=== PATIENT | male | born 1960 | race Caucasian/White ===

== ENCOUNTER 2018-02-20 19:43 | Inpatient (IN) | payer MEDICARE, MEDICAID ==
--- NOTE | 2018-02-20 20:13 | ED Physician Chart ---
ED Chief Complaint/HPI - Patient Information Date Seen:: 02/20/18 Time Seen:: 20:12 Chief Complaint:: Generalized weakness History of Present Illness:: 57 yo female was brought from [facility] to ER for evaluation of generalized weakness. The patient is non-verbal. Allergies:: Allergies Allergy/AdvReac Type Severity Reaction Status Date / Time ibuprofen Allergy Verified 02/20/18 20:11 ED Review of Systems - Review of Systems General/Constitutional: No fever Skin: No bruising Head: No headache Eyes: No pain ENT: No nasal drainage Neck: No neck pain Cardio Vascular: No chest pain Pulmonary: No SOB GI: No nausea, No vomiting Musculoskeletal: No muscle pain Neurological: No focal symptoms ED Past Medical History - Past Medical History Past Medical History: HTN, CHF, ESRD, Other (HIV, CARDIOMEGALY, ANEMIA) Social History: Non Smoker, No Alcohol, No Drug Use Surgical History: other (LEFT UPPER ARM SHUNT) Family Medical History - Family Member Mother History Unknown: Yes ED Physical Exam - Physical Examination General/Constitutional: Awake Head: Atraumatic Eyes: PERRL Skin: No ecchymosis ENMT: Nasal exam nl Neck: No nuchal rigidity Respiratory: No Wheeze/Rhonchi/Rales Cardio Vascular: RRR, No murmur, gallop, rubs, NL S1 S2 GI: No tenderness/rebounding/guarding Extremities: Full ROM Neuro/Psych: No focal deficits ED Labs/Radiology/EKG Results - Radiology Results Results: CXR: no acute abnormalities ED Assessment - Assessment General Assessment: CHF exacerbation CKD stage 5 on hemodialysis Normocytic anemia Hyperkalemia Assessment/Comments:: CBC, CMP CXR, EKG Hydralazine Admit to telemetry ED Septic Shock - . Is Septic Shock (SBP<90, OR Lactate>4 mmol\L) present?: No ED Reassessment (Disposition) - Reassessment Reassessment Condition:: Improved - Patient Disposition Discharge/Transfer:: Acute Care w/in [facility] Admitting Medical Physician:: Matias Diaz ED Discharge Plan - Patient Disposition Admit/Discharge/Transfer: Acute Care w/in [facility]
[2018-02-20 20:40] LABS: % BASOPHILS 0.4 % (0.0-2.0); % LYMPHOCYTES 9.8 % (20.0-50.0); % MONOCYTES 10.6 % (2.0-10.0); % NEUTROPHILS 77.2 % (40.0-80.0); EOSINOPHILE ABSOLUTE 0.2 Th/cmm (0.1-0.4); HEMATOCRIT 29.7 % (41.0-60); HEMOGLOBIN 10.3 gm/dL (12-16); LYMPHOCYTE ABSOLUTE 0.8 Th/cmm (1.5-3.0); MEAN CELL VOLUME 92.6 fl (81-100); MEAN CORPUSCULAR HGB CONC 34.5 pg (28.0-36.0); MEAN PLATELET VOLUME 7.8 fl; MONOCYTE ABSOLUTE 0.8 Th/cmm (0.3-1.0); NEUTROPHILE ABSOLUTE 6.1 Th/cmm (1.8-8.0); PLATELET COUNT 170 Th/cmm (150-400); RED BLOOD COUNT 3.21 Mil/cmm (3.80-5.10); RED CELL DISTRIBUTION WIDTH 15.2 % (11.5-20.0); WHITE BLOOD COUNT 7.9 Th/cmm (4.8-10.8)
[2018-02-20 21:06] LABS: ALB/GLOB RATIO 0.9 (1.0-1.8); ALBUMIN 3.5 gm/dL (3.7-5.3); ANION GAP 23.8 (7.0-16.0); BILIRUBIN,TOTAL 0.6 mg/dL (0.3-1.0); CALCIUM SERUM 10.2 mg/dL (8.6-10.3); CARBON DIOXIDE 21.6 mEq/L (21.0-31.0); GFR AFRICAN-AMERICAN 3.5 ml/min (>90); GFR NON AFRICAN-AMERICAN 2.9 ml/min; MAGNESIUM 2.7 mg/dL (1.9-2.7); POTASSIUM SERUM 5.4 mEq/L (3.5-5.1); TOTAL PROTEIN,SERUM 7.3 gm/dL (6.0-8.3)
[2018-02-21 06:42] LABS: ANION GAP 24.9 (7.0-16.0); CALCIUM SERUM 10.3 mg/dL (8.6-10.3); CARBON DIOXIDE 21.3 mEq/L (21.0-31.0); GFR AFRICAN-AMERICAN 4.5 ml/min (>90); GFR NON AFRICAN-AMERICAN 3.7 ml/min
[2018-02-21 07:10] LABS: CREATININE - SERUM 14.5 mg/dL (0.7-1.3); POTASSIUM SERUM 6.2 mEq/L (3.5-5.1)
[2018-02-21] MEDS ORDERED: DOLUTEGRAVIR SODIUM 50 MG PO SCH (09:00)
[2018-02-21] MEDS: Lactulose 10 Gm/15 mL 30mL UDC PO SCH ×2 (09:00→17:18)
[2018-02-21] MEDS ORDERED: NUT TX IMPAIRED RENAL FXN SOY PO SCH (09:00)
[2018-02-21] MEDS ORDERED: ABACAVIR SULFATE 600 MG PO SCH (09:00)
[2018-02-21] MEDS ORDERED: LAMIVUDINE 300 MG PO SCH (09:00)
--- NOTE | 2018-02-21 09:20 | Diagnostic Imaging Report ---
Portable chest x-ray Time: 2020 hours History: Shortness of breath Allowing for portable technique the heart is enlarged. No focal pulmonary parenchymal processes. No hilar or mediastinal abnormalities.. Arch calcified Impression: No acute abnormalities. Pneumobilia, atherosclerotic calcification of the thoracic aorta and aortic arch area
[2018-02-21] MEDS ORDERED: VTE Chemical Prophylaxis Screen/Admission MC PRN (10:03)
[2018-02-21] MEDS: Vitamin B Complex w/Vitamin C Tab PO SCH (16:20)
[2018-02-22 06:51] LABS: % BASOPHILS 0.4 % (0.0-2.0); % EOSINOPHILS 2.6 % (0.0-5.0); % LYMPHOCYTES 13.5 % (20.0-50.0); % MONOCYTES 11.1 % (2.0-10.0); % NEUTROPHILS 72.4 % (40.0-80.0); EOSINOPHILE ABSOLUTE 0.1 Th/cmm (0.1-0.4); HEMATOCRIT 30.1 % (41.0-60); HEMOGLOBIN 10.2 gm/dL (12-16); LYMPHOCYTE ABSOLUTE 0.7 Th/cmm (1.5-3.0); MEAN CORPUSCULAR HEMOGLOBIN 31.3 pg (26.0-30.0); MEAN PLATELET VOLUME 7.8 fl; MONOCYTE ABSOLUTE 0.6 Th/cmm (0.3-1.0); PLATELET COUNT 159 Th/cmm (150-400); RED BLOOD COUNT 3.27 Mil/cmm (4.30-5.70); RED CELL DISTRIBUTION WIDTH 15.1 % (11.5-20.0); WHITE BLOOD COUNT 5.4 Th/cmm (4.8-10.8)
[2018-02-22 07:10] LABS: ANION GAP 17.2 (7.0-16.0); CALCIUM SERUM 10.2 mg/dL (8.6-10.3); CARBON DIOXIDE 24.6 mEq/L (21.0-31.0); GFR AFRICAN-AMERICAN 6.7 ml/min (>90); GFR NON AFRICAN-AMERICAN 5.5 ml/min; MAGNESIUM 2.3 mg/dL (1.9-2.7); POTASSIUM SERUM 4.8 mEq/L (3.5-5.1)
[2018-02-22 08:10] LABS: CREATININE - SERUM 10.3 mg/dL (0.7-1.3)
[2018-02-22] MEDS: Lactulose 10 Gm/15 mL 30mL UDC PO SCH ×2 (09:35→17:39)
[2018-02-22] MEDS: Vitamin B Complex w/Vitamin C Tab PO SCH (09:36)
--- NOTE | 2018-02-22 12:13 | Consultation ---
DATE OF CONSULTATION: 02/21/2018 REASON FOR CONSULTATION: Electrolyte imbalance and fluid management. HISTORY OF PRESENT ILLNESS: This is a 57-year-old male with past medical history of end-stage renal disease, on hemodialysis, who was brought in because of generalized weakness. A few hours prior to admission, the patient was noted by [facility] staff to be quite lethargic. This was associated with progressive weakness. He was then brought to the Emergency Room. His temperature was 98.4 with a white count of 7.9. Chest x-ray showed pneumobilia. His BUN/creatinine were 107/14.5 with a potassium of 6.2. He had no history of nausea and vomiting, diarrhea, shortness of breath, cough/congestion. PAST MEDICAL HISTORY: 1. End-stage renal disease, on hemodialysis. 2. Anemia of chronic disease. 3. HIV. 4. Congestive heart failure. 5. Essential hypertension. 6. Coronary artery disease. 7. Cardiomyopathy. 8. Metabolic encephalopathy. PAST SURGICAL HISTORY: Status post creation of left AV fistula. CURRENT MEDICATIONS: He is currently on abacavir, acetaminophen, amlodipine, aspirin, bisacodyl, carvedilol, cinacalcet, cyanocobalamin, docusate sodium, dolutegravir sodium, folic acid, lactulose, Epivir, lisinopril, ondansetron, sevelamer, thiamine, and B12. ALLERGIES: IBUPROFEN. SOCIAL AND FAMILY HISTORY: I was not able to obtain from the patient because he remains nonverbal. REVIEW OF SYSTEMS: Again, I was not able to decipher directly from the patient because of the same reason. PHYSICAL EXAMINATION: GENERAL: The patient is awake, comfortable, remains nonverbal at the present time. VITAL SIGNS: His blood pressure is 159/83, pulse 80, and temperature 98 degrees. SKIN: Good turgor, warm, no rash, no jaundice appreciated. HEENT: Head normocephalic, atraumatic. Eyes: Extraocular muscles intact. Pupils equal, round, reactive to light and accommodates. Anicteric sclerae. Pale conjunctivae. Nose, midline nasal septum. Mouth, moist mucosa, adequate dentition. NECK: Supple, no adenopathy, no thyromegaly, no bruits. Trachea palpated in the midline. CHEST AND CARDIOVASCULAR: S1, S2. No rub, murmur, nor gallop appreciated. Point of maximal impulse fifth intercostal space, left midclavicular line. No abdominal or femoral bruits appreciated. LUNGS: Equal expansion. No use of accessory muscles. No supraclavicular retractions. Decreased breath sounds with few rhonchi, but no rales nor wheezes appreciated. ABDOMEN: Flat, soft, positive for bowel sounds. No bruits either diastolic or systolic. RECTAL: The patient refused. GENITOURINARY: Normal appearing male genitalia. MUSCULOSKELETAL: No effusions present in his joints, but unable to assess his range of motion. EXTREMITIES: He has no evidence of edema, cyanosis, nor clubbing with palpable femoral, but unable to fully appreciate popliteal and dorsalis pedis pulses. NEUROLOGIC: The patient is awake; however, unable to follow my neuro commands, so I was not able to pursue further my neuro exam. LABORATORY DATA: Did reveal white count 7.9, hemoglobin 10.3, hematocrit 29.7, platelets 170, and polys 77.2%. Sodium is 137, potassium 6.2, chloride 97, bicarbonate 21, BUN 107, creatinine 14.5, glucose 89, and calcium 10.3. Troponin 0.06, BNP of greater than 5000, and albumin of 3.5. IMPRESSION: 1. End-stage renal disease, on hemodialysis. 2. Lethargy with weakness secondary to possibly uremia. 3. Elevated BNP secondary to end-stage renal disease. 4. Anemia of chronic kidney disease. 5. Human immunodeficiency virus. 6. History of congestive heart failure. 7. Essential hypertension with chronic kidney disease. 8. Coronary artery disease. 9. Cardiomyopathy. PLAN: 1. Hemodialysis today. 2. Follow up electrolytes and if BUN/creatinine remains elevated, may need extra dose of dialysis. 3. Consider CT scan of the head if the patient's neuro status does not improve. JOB# [id number]
--- NOTE | 2018-02-22 18:59 | History & Physical ---
ADMIT DATE: 02/21/2018 CHIEF COMPLAINT: Short of breath, cough, severe weakness. HISTORY OF PRESENT ILLNESS: The patient is a Bahamian speaking 57-year-old male admitted from the Emergency Room to telemetry floor of [facility] due to multiple complex medical conditions. The patient is very weak and complains short of breath and cough. The patient does have history of congestive heart failure with markedly elevated BNP. His BNP was over 5000 in the Emergency Room and his potassium is 6.2, BUN 107, creatinine 14.5. He is a hemodialysis patient for the past few years. His troponin was also mildly elevated in the Emergency Room, which could be due to the fact the patient had end-stage renal disease on hemodialysis, but we will repeat to make sure it does not go up. He is also anemic and the patient is confused and very lethargic, but is able to eat by himself. Nephrology consultation requested and greatly appreciated, and the patient is due for hemodialysis as well. PAST MEDICAL HISTORY: Including end-stage renal disease on hemodialysis, anemia, HIV, hypertension, congestive heart failure, coronary artery disease status post TX, cardiomegaly, history of acute pulmonary edema, etc. PAST SURGICAL HISTORY: Dialysis access placed. MEDICATIONS: See medication reconciliation list. ALLERGIES: IBUPROFEN. FAMILY HISTORY: Noncontributory. SOCIAL HISTORY: The patient smoked before, quit years ago. No history of alcohol or IV drug use. REVIEW OF SYSTEMS: Not feasible as the patient is basically nonverbal or unwilling to talk. PHYSICAL EXAMINATION: GENERAL: A well-developed, thin male in no acute distress. SKIN: There are a few excoriation. VITAL SIGNS: Basically stable. HEENT: Normocephalic, atraumatic. Pupils equal, round, react to light and accommodation. CHEST: Symmetrical. LUNGS: Few wheezing appreciated. HEART: Normal sinus rhythm. S1, S2. ABDOMEN: Benign, soft, nontender. EXTREMITIES: No clubbing, cyanosis, edema bilaterally. 2+ equally. NEUROLOGICAL: Unremarkable. LABORATORY TESTING: Lab reviewed as seen from the computer. Potassium 6.2, BUN 107, creatinine 14.5. Troponin more than 5000. ASSESSMENT AND PLAN: 1. Congestive heart failure with marked elevated BNP: We will observe closely and adjust medications as needed. 2. End-stage renal disease, on hemodialysis. Full Nephrology consultation requested and greatly appreciated. 3. Hyperkalemia: Kayexalate and hemodialysis will help. 4. Elevated troponin: Make sure the patient's troponin does not go up and on the other hand for the patient's lifetime, the troponin can be mildly elevated. 5. History of HIV: Continue medications. 6. Shortness of breath: Multifactorial. 7. Anemia of chronic disease and end-stage renal disease, on hemodialysis. 8. Hypertension: Adjust medication as needed. 9. History of pulmonary edema. 10. History of hypertension. 11. DVT prophylaxis. JOB# [id number]
[2018-02-23 07:17] LABS: % BASOPHILS 0.6 % (0.0-2.0); % EOSINOPHILS 2.5 % (0.0-5.0); % LYMPHOCYTES 10.5 % (20.0-50.0); % MONOCYTES 13.1 % (2.0-10.0); % NEUTROPHILS 73.3 % (40.0-80.0); EOSINOPHILE ABSOLUTE 0.1 Th/cmm (0.1-0.4); HEMATOCRIT 34.5 % (41.0-60); HEMOGLOBIN 11.4 gm/dL (12-16); LYMPHOCYTE ABSOLUTE 0.6 Th/cmm (1.5-3.0); MEAN CELL VOLUME 91.8 fl (80-99); MEAN CORPUSCULAR HEMOGLOBIN 30.3 pg (26.0-30.0); MONOCYTE ABSOLUTE 0.7 Th/cmm (0.3-1.0); NEUTROPHILE ABSOLUTE 4.3 Th/cmm (1.8-8.0); PLATELET COUNT 156 Th/cmm (150-400); RED BLOOD COUNT 3.75 Mil/cmm (4.30-5.70); RED CELL DISTRIBUTION WIDTH 14.6 % (11.5-20.0); WHITE BLOOD COUNT 5.7 Th/cmm (4.8-10.8)
[2018-02-23 07:47] LABS: ALB/GLOB RATIO 0.9 (1.0-1.8); ALBUMIN 3.8 gm/dL (4.2-5.5); ANION GAP 14.5 (7.0-16.0); BILIRUBIN,TOTAL 0.8 mg/dL (0.3-1.0); CALCIUM SERUM 10.3 mg/dL (8.6-10.3); CARBON DIOXIDE 28.3 mEq/L (21.0-31.0); GFR AFRICAN-AMERICAN 10.1 ml/min (>90); GFR NON AFRICAN-AMERICAN 8.3 ml/min; POTASSIUM SERUM 3.8 mEq/L (3.5-5.1); TOTAL PROTEIN,SERUM 7.9 gm/dL (6.0-8.3)
[2018-02-23 07:48] LABS: CREATININE - SERUM 7.2 mg/dL (0.7-1.3)
[2018-02-23] MEDS: Vitamin B Complex w/Vitamin C Tab PO SCH (08:32)
[2018-02-23] MEDS: Lactulose 10 Gm/15 mL 30mL UDC PO SCH ×2 (08:41→17:53)
[2018-02-23] MEDS: TIVICAY 50 MG PO SCH (15:36)
[2018-02-23] MEDS: ABACAVIR 300 MG PO SCH (15:36)
[2018-02-23] MEDS: LAMIVUDINE 300 MG PO SCH (15:36)
--- NOTE | 2018-02-24 01:59 | Progress Notes ---
DATE: 02/23/2018 SUBJECTIVE: The patient is somewhat depressed and confused, lethargic, afebrile. OBJECTIVE: VITAL SIGNS: Stable. HEENT: Normocephalic, atraumatic. Pupils equal, round, react to light and accommodation. CHEST: Symmetrical. LUNGS: Few wheezing appreciated with rhonchi at lung base. CARDIAC: Normal sinus rhythm. S1, S2. ABDOMEN: Benign, soft, nontender. EXTREMITIES: No clubbing, cyanosis, edema, bilaterally . NEUROLOGIC: Unremarkable. LABORATORY DATA: Reviewed as seen from the computer. ASSESSMENT AND PLAN: 1. End-stage renal disease, on hemodialysis. 2. Congestive heart failure with markedly elevated BNP. 3. Hyperkalemia is corrected. 4. Elevated troponin, stable, probably due to end-stage renal disease, on hemodialysis. 5. HIV: Continue medications. 6. Short of breath, improving. 7. Anemia of chronic disease. 8. Hypertension. 9. History of pulmonary edema, improving. 10. DVT prophylaxis. 11. Depression with questionable suicidal ideation. Psychiatric consultation requested. JOB# [id number]
[2018-02-24] MEDS: Vitamin B Complex w/Vitamin C Tab PO SCH (08:41)
[2018-02-24] MEDS: Lactulose 10 Gm/15 mL 30mL UDC PO SCH ×2 (09:46→17:14)
[2018-02-24] MEDS: ABACAVIR 300 MG PO SCH (09:46)
[2018-02-24] MEDS: TIVICAY 50 MG PO SCH (09:47)
[2018-02-24] MEDS: LAMIVUDINE 300 MG PO SCH (09:47)
--- NOTE | 2018-02-24 12:41 | General Progress Note ---
Subjective - Review of Systems Service Date: 02/24/18 Subjective: more awake, but slow mentation Objective - Results Result Diagrams: 02/23/18 05:50 02/23/18 05:50 Recent Labs: Laboratory Last Values WBC 5.7 Th/cmm (4.8-10.8) 02/23/18 05:50 RBC 3.75 Mil/cmm (4.30-5.70) L 02/23/18 05:50 Hgb 11.4 gm/dL (12-16) L 02/23/18 05:50 Hct 34.5 % (41.0-60) L 02/23/18 05:50 MCV 91.8 fl (80-99) 02/23/18 05:50 MCH 30.3 pg (26.0-30.0) H 02/23/18 05:50 MCHC Differential 33.0 pg (28.0-36.0) 02/23/18 05:50 RDW 14.6 % (11.5-20.0) 02/23/18 05:50 Plt Count 156 Th/cmm (150-400) 02/23/18 05:50 MPV 8.0 fl 02/23/18 05:50 Neutrophils % 73.3 % (40.0-80.0) 02/23/18 05:50 Lymphocytes % 10.5 % (20.0-50.0) L 02/23/18 05:50 Monocytes % 13.1 % (2.0-10.0) H 02/23/18 05:50 Eosinophils % 2.5 % (0.0-5.0) 02/23/18 05:50 Basophils % 0.6 % (0.0-2.0) 02/23/18 05:50 Sodium 136 mEq/L (136-145) 02/23/18 05:50 Potassium 3.8 mEq/L (3.5-5.1) 02/23/18 05:50 Chloride 97 mEq/L (98-107) L 02/23/18 05:50 Carbon Dioxide 28.3 mEq/L (21.0-31.0) 02/23/18 05:50 Anion Gap 14.5 (7.0-16.0) 02/23/18 05:50 BUN 37 mg/dL (7-25) H 02/23/18 05:50 Creatinine 7.2 mg/dL (0.7-1.3) H* 02/23/18 05:50 Est GFR ( Amer) 10.1 ml/min (>90) 02/23/18 05:50 Est GFR (Non-Af Amer) 8.3 ml/min 02/23/18 05:50 BUN/Creatinine Ratio 5.1 02/23/18 05:50 Glucose 79 mg/dL (70-105) 02/23/18 05:50 Calcium 10.3 mg/dL (8.6-10.3) 02/23/18 05:50 Phosphorus 8.0 mg/dL (2.5-5.0) H 02/22/18 05:10 Magnesium 2.3 mg/dL (1.9-2.7) 02/22/18 05:10 Total Bilirubin 0.8 mg/dL (0.3-1.0) 02/23/18 05:50 AST 5 U/L (13-39) L 02/23/18 05:50 ALT 5 U/L (7-52) L 02/23/18 05:50 Alkaline Phosphatase 150 U/L (34-104) H 02/23/18 05:50 Troponin I 0.06 ng/mL (0.01-0.05) H 02/20/18 23:55 B-Natriuretic Peptide > 5000.0 pg/mL (5.0-100.0) H 02/21/18 05:20 Total Protein 7.9 gm/dL (6.0-8.3) 02/23/18 05:50 Albumin 3.8 gm/dL (4.2-5.5) L 02/23/18 05:50 Globulin 4.1 gm/dL 02/23/18 05:50 Albumin/Globulin Ratio 0.9 (1.0-1.8) L 02/23/18 05:50 Hepatitis A IgM Ab NEGATIVE 02/21/18 17:07 Hep Bs Antigen NEGATIVE 02/21/18 17:07 Hep B Core IgM Ab NEGATIVE 02/21/18 17:07 Hepatitis C Antibody 0.1 02/21/18 17:07 - Physical Exam Vitals and I&O: Vital Signs Temp 98.2 F 02/24/18 12:06 Pulse 80 02/24/18 12:06 Resp 18 05/28/18 12:06 BP 128/85 02/24/18 12:06 Pulse Ox 98 02/24/18 12:06 Intake & Output 02/23/18 02/24/18 02/24/18 18:59 06:59 18:59 Intake Total 300 100 Balance 300 100 Weight (lbs) 58.513 kg 58.513 kg Intake: Oral 300 100 Other: # Voids 1 0 # Bowel Movements 0 0 Stool Characteristics Soft Brown Brown Brown Weight Source Bedscale Bedscale Active Medications: Current Medications Acetaminophen (Tylenol) 650 mg PO Q6HR PRN PRN Reason: Pain or Fever >101 Stop: 04/21/18 23:32 Amlodipine Besylate (Norvasc) 10 mg PO DAILY [facility] Stop: 04/22/18 08:59 Last Admin: 02/24/18 09:46 Dose: Not Given Aspirin (Ecotrin) 81 mg PO DAILY [facility] Stop: 04/22/18 08:59 Last Admin: 02/24/18 08:44 Dose: 81 mg Bisacodyl (Dulcolax 10 Mg Supp) 10 mg RC DAILY PRN PRN Reason: Constipation Stop: 04/21/18 23:32 Carvedilol (Coreg) 25 mg PO BID [facility] Stop: 04/22/18 08:59 Last Admin: 02/24/18 09:46 Dose: Not Given Cinacalcet (Sensipar) 60 mg PO DAILY [facility] Stop: 04/22/18 08:59 Last Admin: 02/24/18 09:46 Dose: Not Given Cyanocobalamin (Vitamin B12) 1,000 mcg PO DAILY [facility] Stop: 04/22/18 08:59 Last Admin: 02/24/18 08:41 Dose: 1,000 mcg Docusate Sodium (Colace) 100 mg PO BID [facility] Stop: 04/22/18 08:59 Last Admin: 02/24/18 08:42 Dose: 100 mg Folic Acid (Folate) 1 mg PO DAILY [facility] Stop: 04/22/18 08:59 Last Admin: 02/24/18 08:42 Dose: 1 mg Heparin Sodium (Porcine) (Heparin) 5,000 units SUBQ Q12H [facility] Stop: 04/22/18 20:59 Last Admin: 02/24/18 09:46 Dose: Not Given Hydralazine HCl (Apresoline 20 Mg/Ml) 10 mg IV Q8HR PRN PRN Reason: BP MAINTENANCE (PER PROTOCOL) Stop: 04/21/18 22:58 Lactulose (Cephulac) 20 gm PO BID [facility] Stop: 04/22/18 08:59 Last Admin: 02/24/18 09:46 Dose: Not Given Lisinopril (Zestril) 5 mg PO DAILY [facility] Stop: 04/23/18 08:59 Last Admin: 02/24/18 09:46 Dose: Not Given Miscellaneous (Vte Chemical Prophylaxis Screen/ Admission) 1 ea MC PRN PRN PRN Reason: PROTOCOL Stop: 04/22/18 10:02 Ondansetron HCl (Zofran Odt) 4 mg SL Q4HR PRN PRN Reason: Nausea / Vomiting Stop: 04/22/18 00:14 (Pom) Lamivudine (300mg Tablet) 1 PO DAILY [facility] Stop: 04/24/18 14:59 Last Admin: 02/24/18 09:47 Dose: Not Given (Pom) Abacavir 300mg (Tablet) 2 PO DAILY [facility] Stop: 04/24/18 14:59 Last Admin: 02/24/18 09:46 Dose: Not Given (Pom) Tivicay 50mg (Tablet) 1 PO DAILY [facility] Stop: 04/24/18 14:59 Last Admin: 02/24/18 09:47 Dose: Not Given Sevelamer Carbonate (Renvela) 2,400 mg PO TIDWM [facility] Stop: 04/22/18 07:59 Last Admin: 02/24/18 11:30 Dose: 2,400 mg Thiamine HCl (Vitamin B1) 100 mg PO DAILY [facility] Stop: 04/22/18 08:59 Last Admin: 02/24/18 08:39 Dose: 100 mg Vitamin B Complex/Vit C/Folic Acid (Vitamin B Complex W/Vitamin C) 1 tab PO DAILY [facility] Stop: 04/22/18 08:59 Last Admin: 02/24/18 08:41 Dose: 1 tab General: Alert, No acute distress HEENT: PERRLA, EOMI, Mucous membr. moist/pink Neck: Supple, +2 carotid pulse wo bruit Cardiovascular: Regular rate, Normal S1, Normal S2 Lungs: Clear to auscultation Abdomen: Bowel sounds, Soft Extremities: no Edema Neurological: Sensation intact Skin: no Rash Psych/Mental Status: Mood NL Assessment/Plan - Assessment Assessment: ESRD on HD Lethargy/Weakness 2/2 to uremia elevated BNP 2/2 to ESRD Anemia of CKD HIV Ess Htn CAD - Plan Plan: Lab - Result Diagrams 02/23/18 05:50 02/23/18 05:50 Current Medications Acetaminophen (Tylenol) 650 mg PO Q6HR PRN PRN Reason: Pain or Fever >101 Stop: 04/21/18 23:32 Amlodipine Besylate (Norvasc) 10 mg PO DAILY [facility] Stop: 04/22/18 08:59 Last Admin: 02/24/18 09:46 Dose: Not Given Aspirin (Ecotrin) 81 mg PO DAILY [facility] Stop: 04/22/18 08:59 Last Admin: 02/24/18 08:44 Dose: 81 mg Bisacodyl (Dulcolax 10 Mg Supp) 10 mg RC DAILY PRN PRN Reason: Constipation Stop: 04/21/18 23:32 Carvedilol (Coreg) 25 mg PO BID [facility] Stop: 04/22/18 08:59 Last Admin: 02/24/18 09:46 Dose: Not Given Cinacalcet (Sensipar) 60 mg PO DAILY [facility] Stop: 04/22/18 08:59 Last Admin: 02/24/18 09:46 Dose: Not Given Cyanocobalamin (Vitamin B12) 1,000 mcg PO DAILY [facility] Stop: 04/22/18 08:59 Last Admin: 02/24/18 08:41 Dose: 1,000 mcg Docusate Sodium (Colace) 100 mg PO BID [facility] Stop: 04/22/18 08:59 Last Admin: 02/24/18 08:42 Dose: 100 mg Folic Acid (Folate) 1 mg PO DAILY [facility] Stop: 04/22/18 08:59 Last Admin: 02/24/18 08:42 Dose: 1 mg Heparin Sodium (Porcine) (Heparin) 5,000 units SUBQ Q12H [facility] Stop: 04/22/18 20:59 Last Admin: 02/24/18 09:46 Dose: Not Given Hydralazine HCl (Apresoline 20 Mg/Ml) 10 mg IV Q8HR PRN PRN Reason: BP MAINTENANCE (PER PROTOCOL) Stop: 04/21/18 22:58 Lactulose (Cephulac) 20 gm PO BID [facility] Stop: 04/22/18 08:59 Last Admin: 02/24/18 09:46 Dose: Not Given Lisinopril (Zestril) 5 mg PO DAILY [facility] Stop: 04/23/18 08:59 Last Admin: 02/24/18 09:46 Dose: Not Given Miscellaneous (Vte Chemical Prophylaxis Screen/ Admission) 1 ea [facility] PRN PRN PRN Reason: PROTOCOL Stop: 04/22/18 10:02 Ondansetron HCl (Zofran Odt) 4 mg SL Q4HR PRN PRN Reason: Nausea / Vomiting Stop: 04/22/18 00:14 (Pom) Lamivudine (300mg Tablet) 1 PO DAILY [facility] Stop: 04/24/18 14:59 Last Admin: 02/24/18 09:47 Dose: Not Given (Pom) Abacavir 300mg (Tablet) 2 PO DAILY [facility] Stop: 04/24/18 14:59 Last Admin: 02/24/18 09:46 Dose: Not Given (Pom) Tivicay 50mg (Tablet) 1 PO DAILY [facility] Stop: 04/24/18 14:59 Last Admin: 02/24/18 09:47 Dose: Not Given Sevelamer Carbonate (Renvela) 2,400 mg PO TIDWM [facility] Stop: 04/22/18 07:59 Last Admin: 02/24/18 11:30 Dose: 2,400 mg Thiamine HCl (Vitamin B1) 100 mg PO DAILY [facility] Stop: 04/22/18 08:59 Last Admin: 02/24/18 08:39 Dose: 100 mg Vitamin B Complex/Vit C/Folic Acid (Vitamin B Complex W/Vitamin C) 1 tab PO DAILY [facility] Stop: 04/22/18 08:59 Last Admin: 02/24/18 08:41 Dose: 1 tab Lab - Result Diagrams 02/23/18 05:50 02/23/18 05:50 schedule for HD in am continue HIV meds Nutritional Asmnt/Malnutr-PDOC - Dietary Evaluation Malnutrition Findings (Please click <Entered> for more info): Nutritional Asmnt/Malnutrition Start: 02/22/18 12: 41 Text: Status: Complete Freq: Document 02/22/18 12:41 ZACK (Rec: 02/22/18 12:47 [facility]) Nutritional Asmnt/Malnutrition Patient General Information Diagnosis CHF/ESRD Pertinent Medical Hx/Surgical Hx as of 02/22 @1242 no H&P completed Subjective Information PT asleep at time Current Diet Order/ Nutrition Support mechanical soft Pertinent Medications reviewed Pertinent Labs reviewed Nutritional Hx/Data Height 1.7 m Height (Calculated Centimeters) 170.2 Current Weight (lbs) 58.06 kg Weight (Calculated Kilograms) 58.1 Weight (Calculated Grams) 78699.8 Body Mass Index (BMI) 20.0 Weight Status Approriate GI Symptoms GI Symptoms None Cultural/Ethnic/Caodaism Belief unknown Usual diet at home unknown Skin Integrity/Comment: behzad score 18 Estimated Nutritional Goals BEE in Kcals: Using Current wt Calories/Kcals/Kg 25-30kcals/kg Kcals Calculated 1450-1740kcals/day Protein: Using Current wt Protein g/kg/kg Protein Calculated 58g/day Fluid: ml per MD Nutritional Problem 1. Problem Problem No nutrition diagnosis at this time Intervention/Recommendation Comments Recommend continuing MAGDY low K diet Expected Outcomes/Goals Expected Outcomes/Goals PO intake >75% of meals
--- NOTE | 2018-02-25 01:43 | Progress Notes ---
DATE: 02/24/2018 SUBJECTIVE: The patient is lethargic, afebrile. OBJECTIVE: VITAL SIGNS: Basically stable. HEENT: Normocephalic, atraumatic. Pupils equal, round, react to light and accommodation. CHEST: Symmetrical. LUNGS: Few wheezing appreciated. HEART: Normal sinus rhythm. S1, S2. ABDOMEN: Benign, soft, nontender. EXTREMITIES: No clubbing, cyanosis. Edema bilaterally 2+. NEUROLOGIC: Unremarkable. LABORATORY DATA: Reviewed as seen from the computer. ASSESSMENT AND PLAN: 1. End-stage renal disease, on hemodialysis. 2. Congestive heart failure with markedly elevated BNP, stable. 3. Hypokalemia, corrected. 4. HIV: Continue medication. 5. Shortness of breath, improving. 6. Elevated troponin, stable and the most likely ____ no digoxin. ____, chronic disease, anemia of chronic disease. 7. DVT prophylaxis. 8. Depression, improving. JOB# [id number]
[2018-02-25] MEDS: Vitamin B Complex w/Vitamin C Tab PO SCH (09:55)
[2018-02-25] MEDS: ABACAVIR 300 MG PO SCH (09:55)
[2018-02-25] MEDS: LAMIVUDINE 300 MG PO SCH (09:55)
[2018-02-25] MEDS: TIVICAY 50 MG PO SCH (09:55)
[2018-02-25] MEDS: Lactulose 10 Gm/15 mL 30mL UDC PO SCH ×2 (09:55→16:41)
--- NOTE | 2018-02-25 14:34 | General Progress Note ---
Subjective - Review of Systems Service Date: 02/25/18 Subjective: more awake, but slow mentation Objective - Results Result Diagrams: 02/23/18 05:50 02/23/18 05:50 Recent Labs: Laboratory Last Values WBC 5.7 Th/cmm (4.8-10.8) 02/23/18 05:50 RBC 3.75 Mil/cmm (4.30-5.70) L 02/23/18 05:50 Hgb 11.4 gm/dL (12-16) L 02/23/18 05:50 Hct 34.5 % (41.0-60) L 02/23/18 05:50 MCV 91.8 fl (80-99) 02/23/18 05:50 MCH 30.3 pg (26.0-30.0) H 02/23/18 05:50 MCHC Differential 33.0 pg (28.0-36.0) 02/23/18 05:50 RDW 14.6 % (11.5-20.0) 02/23/18 05:50 Plt Count 156 Th/cmm (150-400) 02/23/18 05:50 MPV 8.0 fl 02/23/18 05:50 Neutrophils % 73.3 % (40.0-80.0) 02/23/18 05:50 Lymphocytes % 10.5 % (20.0-50.0) L 02/23/18 05:50 Monocytes % 13.1 % (2.0-10.0) H 02/23/18 05:50 Eosinophils % 2.5 % (0.0-5.0) 02/23/18 05:50 Basophils % 0.6 % (0.0-2.0) 02/23/18 05:50 Sodium 136 mEq/L (136-145) 02/23/18 05:50 Potassium 3.8 mEq/L (3.5-5.1) 02/23/18 05:50 Chloride 97 mEq/L (98-107) L 02/23/18 05:50 Carbon Dioxide 28.3 mEq/L (21.0-31.0) 02/23/18 05:50 Anion Gap 14.5 (7.0-16.0) 02/23/18 05:50 BUN 37 mg/dL (7-25) H 02/23/18 05:50 Creatinine 7.2 mg/dL (0.7-1.3) H* 02/23/18 05:50 Est GFR ( Amer) 10.1 ml/min (>90) 02/23/18 05:50 Est GFR (Non-Af Amer) 8.3 ml/min 02/23/18 05:50 BUN/Creatinine Ratio 5.1 02/23/18 05:50 Glucose 79 mg/dL (70-105) 02/23/18 05:50 Calcium 10.3 mg/dL (8.6-10.3) 02/23/18 05:50 Phosphorus 8.0 mg/dL (2.5-5.0) H 02/22/18 05:10 Magnesium 2.3 mg/dL (1.9-2.7) 02/22/18 05:10 Total Bilirubin 0.8 mg/dL (0.3-1.0) 02/23/18 05:50 AST 5 U/L (13-39) L 02/23/18 05:50 ALT 5 U/L (7-52) L 02/23/18 05:50 Alkaline Phosphatase 150 U/L (34-104) H 02/23/18 05:50 Troponin I 0.06 ng/mL (0.01-0.05) H 02/20/18 23:55 B-Natriuretic Peptide > 5000.0 pg/mL (5.0-100.0) H 02/21/18 05:20 Total Protein 7.9 gm/dL (6.0-8.3) 02/23/18 05:50 Albumin 3.8 gm/dL (4.2-5.5) L 02/23/18 05:50 Globulin 4.1 gm/dL 02/23/18 05:50 Albumin/Globulin Ratio 0.9 (1.0-1.8) L 02/23/18 05:50 Hepatitis A IgM Ab NEGATIVE 02/21/18 17:07 Hep Bs Antigen NEGATIVE 02/21/18 17:07 Hep B Core IgM Ab NEGATIVE 02/21/18 17:07 Hepatitis C Antibody 0.1 02/21/18 17:07 - Physical Exam Vitals and I&O: Vital Signs Temp 97.7 F 02/25/18 12:00 Pulse 86 02/25/18 12:00 Resp 18 05/29/18 12:00 BP 158/84 02/25/18 12:00 Pulse Ox 100 02/25/18 12:00 Intake & Output 02/24/18 02/25/18 02/25/18 18:59 06:59 18:59 Intake Total 500 Balance 500 Weight (lbs) 59.874 kg 59.676 kg Intake: Oral 500 Other: # Voids 0 0 # Bowel Movements 0 0 Stool Characteristics Brown Weight Source Bedscale Bedscale Active Medications: Current Medications Acetaminophen (Tylenol) 650 mg PO Q6HR PRN PRN Reason: Pain or Fever >101 Stop: 04/21/18 23:32 Amlodipine Besylate (Norvasc) 10 mg PO DAILY [facility] Stop: 04/22/18 08:59 Last Admin: 02/25/18 09:54 Dose: Not Given Aspirin (Ecotrin) 81 mg PO DAILY [facility] Stop: 04/22/18 08:59 Last Admin: 02/25/18 09:54 Dose: Not Given Bisacodyl (Dulcolax 10 Mg Supp) 10 mg RC DAILY PRN PRN Reason: Constipation Stop: 04/21/18 23:32 Carvedilol (Coreg) 25 mg PO BID [facility] Stop: 04/22/18 08:59 Last Admin: 02/25/18 09:55 Dose: Not Given Cinacalcet (Sensipar) 60 mg PO DAILY [facility] Stop: 04/22/18 08:59 Last Admin: 02/25/18 09:55 Dose: Not Given Cyanocobalamin (Vitamin B12) 1,000 mcg PO DAILY [facility] Stop: 04/22/18 08:59 Last Admin: 02/25/18 09:55 Dose: Not Given Docusate Sodium (Colace) 100 mg PO BID [facility] Stop: 04/22/18 08:59 Last Admin: 02/25/18 09:55 Dose: Not Given Folic Acid (Folate) 1 mg PO DAILY [facility] Stop: 04/22/18 08:59 Last Admin: 02/25/18 09:55 Dose: Not Given Heparin Sodium (Porcine) (Heparin) 5,000 units SUBQ Q12H [facility] Stop: 04/22/18 20:59 Last Admin: 02/25/18 09:55 Dose: Not Given Hydralazine HCl (Apresoline 20 Mg/Ml) 10 mg IV Q8HR PRN PRN Reason: BP MAINTENANCE (PER PROTOCOL) Stop: 04/21/18 22:58 Lactulose (Cephulac) 20 gm PO BID [facility] Stop: 04/22/18 08:59 Last Admin: 02/25/18 09:55 Dose: Not Given Lisinopril (Zestril) 5 mg PO DAILY [facility] Stop: 04/23/18 08:59 Last Admin: 02/25/18 09:55 Dose: Not Given Miscellaneous (Vte Chemical Prophylaxis Screen/ Admission) 1 ea [facility] PRN PRN PRN Reason: PROTOCOL Stop: 04/22/18 10:02 Ondansetron HCl (Zofran Odt) 4 mg SL Q4HR PRN PRN Reason: Nausea / Vomiting Stop: 04/22/18 00:14 (Pom) Lamivudine (300mg Tablet) 1 PO DAILY [facility] Stop: 04/24/18 14:59 Last Admin: 02/25/18 09:55 Dose: Not Given (Pom) Abacavir 300mg (Tablet) 2 PO DAILY [facility] Stop: 04/24/18 14:59 Last Admin: 02/25/18 09:55 Dose: Not Given (Pom) Tivicay 50mg (Tablet) 1 PO DAILY [facility] Stop: 04/24/18 14:59 Last Admin: 02/25/18 09:55 Dose: Not Given Sevelamer Carbonate (Renvela) 2,400 mg PO TIDWM [facility] Stop: 04/22/18 07:59 Last Admin: 02/25/18 13:53 Dose: Not Given Thiamine HCl (Vitamin B1) 100 mg PO DAILY [facility] Stop: 04/22/18 08:59 Last Admin: 02/25/18 09:55 Dose: Not Given Vitamin B Complex/Vit C/Folic Acid (Vitamin B Complex W/Vitamin C) 1 tab PO DAILY [facility] Stop: 04/22/18 08:59 Last Admin: 02/25/18 09:55 Dose: Not Given General: Alert, No acute distress HEENT: PERRLA, EOMI, Mucous membr. moist/pink Neck: Supple, +2 carotid pulse wo bruit Cardiovascular: Regular rate, Normal S1, Normal S2 Lungs: Clear to auscultation Abdomen: Bowel sounds, Soft Extremities: no Edema Neurological: Sensation intact Skin: no Rash Psych/Mental Status: Mood NL Assessment/Plan - Assessment Assessment: ESRD on HD Lethargy/Weakness 2/2 to uremia elevated BNP 2/2 to ESRD Anemia of CKD HIV Ess Htn CAD - Plan Plan: Lab - Result Diagrams 02/23/18 05:50 02/23/18 05:50 Current Medications Acetaminophen (Tylenol) 650 mg PO Q6HR PRN PRN Reason: Pain or Fever >101 Stop: 04/21/18 23:32 Amlodipine Besylate (Norvasc) 10 mg PO DAILY [facility] Stop: 04/22/18 08:59 Last Admin: 02/24/18 09:46 Dose: Not Given Aspirin (Ecotrin) 81 mg PO DAILY [facility] Stop: 04/22/18 08:59 Last Admin: 02/24/18 08:44 Dose: 81 mg Bisacodyl (Dulcolax 10 Mg Supp) 10 mg RC DAILY PRN PRN Reason: Constipation Stop: 04/21/18 23:32 Carvedilol (Coreg) 25 mg PO BID [facility] Stop: 04/22/18 08:59 Last Admin: 02/24/18 09:46 Dose: Not Given Cinacalcet (Sensipar) 60 mg PO DAILY [facility] Stop: 04/22/18 08:59 Last Admin: 02/24/18 09:46 Dose: Not Given Cyanocobalamin (Vitamin B12) 1,000 mcg PO DAILY [facility] Stop: 04/22/18 08:59 Last Admin: 02/24/18 08:41 Dose: 1,000 mcg Docusate Sodium (Colace) 100 mg PO BID [facility] Stop: 04/22/18 08:59 Last Admin: 02/24/18 08:42 Dose: 100 mg Folic Acid (Folate) 1 mg PO DAILY [facility] Stop: 04/22/18 08:59 Last Admin: 02/24/18 08:42 Dose: 1 mg Heparin Sodium (Porcine) (Heparin) 5,000 units SUBQ Q12H [facility] Stop: 04/22/18 20:59 Last Admin: 02/24/18 09:46 Dose: Not Given Hydralazine HCl (Apresoline 20 Mg/Ml) 10 mg IV Q8HR PRN PRN Reason: BP MAINTENANCE (PER PROTOCOL) Stop: 04/21/18 22:58 Lactulose (Cephulac) 20 gm PO BID [facility] Stop: 04/22/18 08:59 Last Admin: 02/24/18 09:46 Dose: Not Given Lisinopril (Zestril) 5 mg PO DAILY [facility] Stop: 04/23/18 08:59 Last Admin: 02/24/18 09:46 Dose: Not Given Miscellaneous (Vte Chemical Prophylaxis Screen/ Admission) 1 ea [facility] PRN PRN PRN Reason: PROTOCOL Stop: 04/22/18 10:02 Ondansetron HCl (Zofran Odt) 4 mg SL Q4HR PRN PRN Reason: Nausea / Vomiting Stop: 04/22/18 00:14 (Pom) Lamivudine (300mg Tablet) 1 PO DAILY [facility] Stop: 04/24/18 14:59 Last Admin: 02/24/18 09:47 Dose: Not Given (Pom) Abacavir 300mg (Tablet) 2 PO DAILY [facility] Stop: 04/24/18 14:59 Last Admin: 02/24/18 09:46 Dose: Not Given (Pom) Tivicay 50mg (Tablet) 1 PO DAILY [facility] Stop: 04/24/18 14:59 Last Admin: 02/24/18 09:47 Dose: Not Given Sevelamer Carbonate (Renvela) 2,400 mg PO TIDWM [facility] Stop: 04/22/18 07:59 Last Admin: 02/24/18 11:30 Dose: 2,400 mg Thiamine HCl (Vitamin B1) 100 mg PO DAILY [facility] Stop: 04/22/18 08:59 Last Admin: 02/24/18 08:39 Dose: 100 mg Vitamin B Complex/Vit C/Folic Acid (Vitamin B Complex W/Vitamin C) 1 tab PO DAILY [facility] Stop: 04/22/18 08:59 Last Admin: 02/24/18 08:41 Dose: 1 tab Lab - Result Diagrams 02/23/18 05:50 02/23/18 05:50 schedule for HD today continue HIV meds Nutritional Asmnt/Malnutr-PDOC - Dietary Evaluation Malnutrition Findings (Please click <Entered> for more info): Nutritional Asmnt/Malnutrition Start: 02/22/18 12: 41 Text: Status: Complete Freq: Document 02/22/18 12:41 ZACK (Rec: 02/22/18 12:47 ZACK WALKER- FN) Nutritional Asmnt/Malnutrition Patient General Information Diagnosis CHF/ESRD Pertinent Medical Hx/Surgical Hx as of 02/22 @1242 no H&P completed Subjective Information PT asleep at time Current Diet Order/ Nutrition Support mechanical soft Pertinent Medications reviewed Pertinent Labs reviewed Nutritional Hx/Data Height 1.7 m Height (Calculated Centimeters) 170.2 Current Weight (lbs) 58.06 kg Weight (Calculated Kilograms) 58.1 Weight (Calculated Grams) 51709.8 Body Mass Index (BMI) 20.0 Weight Status Approriate GI Symptoms GI Symptoms None Cultural/Ethnic/Restorationism Belief unknown Usual diet at home unknown Skin Integrity/Comment: behzad score 18 Estimated Nutritional Goals BEE in Kcals: Using Current wt Calories/Kcals/Kg 25-30kcals/kg Kcals Calculated 1450-1740kcals/day Protein: Using Current wt Protein g/kg/kg Protein Calculated 58g/day Fluid: ml per MD Nutritional Problem 1. Problem Problem No nutrition diagnosis at this time Intervention/Recommendation Comments Recommend continuing MAGDY low K diet Expected Outcomes/Goals Expected Outcomes/Goals PO intake >75% of meals
[2018-02-25 17:13] LABS: HEP A AB IGM Negative (Negative); HEP B CORE IGM Negative (Negative); HEP B SURFACE AG QL Negative (Negative); HEP C ANTIBODY 0.1 s/co ratio (0.0-0.9)
--- NOTE | 2018-02-26 03:52 | Progress Notes ---
DATE: 02/25/2018 SUBJECTIVE: The patient is confused, agitated from time to time and is mildly febrile today. OBJECTIVE: VITAL SIGNS: Basically stable. HEENT: Normocephalic, atraumatic. Pupils equal, round, and reactive to light and accommodation. CHEST: Symmetrical. LUNGS: Few wheezing appreciable, rhonchi at lung base. CARDIAC: Normal sinus rhythm, S1, S2. ABDOMEN: Benign, soft, nontender. EXTREMITIES: No clubbing, cyanosis, or edema bilaterally, 2+ equally. NEUROLOGICAL: Unremarkable. LABORATORY DATA: Reviewed. ASSESSMENT AND PLAN: 1. He has altered level of consciousness due to metabolic encephalopathy and dementia and we will observe closely. 2. End-stage renal disease, on hemodialysis. 3. Congestive heart failure with marked elevated BNP: Continue current management and observe closely. 4. HIV: Continue medication. 5. Short of breath, improving. 6. Elevated troponin, stable, probably due to end-stage renal disease, on hemodialysis. 7. Depression, improving. 8. Mild psychosis. 9. DVT prophylaxis. 10. Discharge planning: I discussed with case management today. JOB# [id number]
[2018-02-26] MEDS: Vitamin B Complex w/Vitamin C Tab PO SCH (09:35)
[2018-02-26] MEDS: ABACAVIR 300 MG PO SCH (09:35)
[2018-02-26] MEDS: LAMIVUDINE 300 MG PO SCH (09:53)
[2018-02-26] MEDS: TIVICAY 50 MG PO SCH (09:53)
[2018-02-26] MEDS: Lactulose 10 Gm/15 mL 30mL UDC PO SCH ×2 (09:53→16:17)
[2018-02-26 10:22] LABS: % BASOPHILS 0.7 % (0.0-2.0); % EOSINOPHILS 2.2 % (0.0-5.0); % LYMPHOCYTES 13.5 % (20.0-50.0); % MONOCYTES 12.9 % (2.0-10.0); % NEUTROPHILS 70.7 % (40.0-80.0); EOSINOPHILE ABSOLUTE 0.1 Th/cmm (0.1-0.4); HEMATOCRIT 34.4 % (41.0-60); HEMOGLOBIN 11.8 gm/dL (12-16); LYMPHOCYTE ABSOLUTE 0.8 Th/cmm (1.5-3.0); MEAN CORPUSCULAR HEMOGLOBIN 31.2 pg (26.0-30.0); MEAN CORPUSCULAR HGB CONC 34.2 pg (28.0-36.0); MEAN PLATELET VOLUME 7.6 fl; MONOCYTE ABSOLUTE 0.8 Th/cmm (0.3-1.0); NEUTROPHILE ABSOLUTE 4.2 Th/cmm (1.8-8.0); PLATELET COUNT 147 Th/cmm (150-400); RED BLOOD COUNT 3.78 Mil/cmm (4.30-5.70); RED CELL DISTRIBUTION WIDTH 14.7 % (11.5-20.0); WHITE BLOOD COUNT 5.9 Th/cmm (4.8-10.8)
[2018-02-26 11:18] LABS: ALB/GLOB RATIO 0.9 (1.0-1.8); ANION GAP 17.2 (7.0-16.0); BILIRUBIN,TOTAL 0.8 mg/dL (0.3-1.0); CALCIUM SERUM 10.8 mg/dL (8.6-10.3); CARBON DIOXIDE 27.4 mEq/L (21.0-31.0); GFR AFRICAN-AMERICAN 7.8 ml/min (>90); GFR NON AFRICAN-AMERICAN 6.4 ml/min; POTASSIUM SERUM 4.6 mEq/L (3.5-5.1); TOTAL PROTEIN,SERUM 8.4 gm/dL (6.0-8.3)
--- NOTE | 2018-02-26 14:39 | General Progress Note ---
Subjective - Review of Systems Service Date: 02/26/18 Subjective: more awake, but slow mentation Objective - Results Result Diagrams: 02/26/18 10:12 02/26/18 10:12 Recent Labs: Laboratory Last Values WBC 5.9 Th/cmm (4.8-10.8) 02/26/18 10:12 RBC 3.78 Mil/cmm (4.30-5.70) L 02/26/18 10:12 Hgb 11.8 gm/dL (12-16) L 02/26/18 10:12 Hct 34.4 % (41.0-60) L 02/26/18 10:12 MCV 91.0 fl (80-99) 02/26/18 10:12 MCH 31.2 pg (26.0-30.0) H 02/26/18 10:12 MCHC Differential 34.2 pg (28.0-36.0) 02/26/18 10:12 RDW 14.7 % (11.5-20.0) 02/26/18 10:12 Plt Count 147 Th/cmm (150-400) L 02/26/18 10:12 MPV 7.6 fl 02/26/18 10:12 Neutrophils % 70.7 % (40.0-80.0) 02/26/18 10:12 Lymphocytes % 13.5 % (20.0-50.0) L 02/26/18 10:12 Monocytes % 12.9 % (2.0-10.0) H 02/26/18 10:12 Eosinophils % 2.2 % (0.0-5.0) 02/26/18 10:12 Basophils % 0.7 % (0.0-2.0) 02/26/18 10:12 Sodium 138 mEq/L (136-145) 02/26/18 10:12 Potassium 4.6 mEq/L (3.5-5.1) 02/26/18 10:12 Chloride 98 mEq/L (98-107) 02/26/18 10:12 Carbon Dioxide 27.4 mEq/L (21.0-31.0) 02/26/18 10:12 Anion Gap 17.2 (7.0-16.0) H 02/26/18 10:12 BUN 48 mg/dL (7-25) H 02/26/18 10:12 Creatinine 9.0 mg/dL (0.7-1.3) H* 02/26/18 10:12 Est GFR ( Amer) 7.8 ml/min (>90) 02/26/18 10:12 Est GFR (Non-Af Amer) 6.4 ml/min 02/26/18 10:12 BUN/Creatinine Ratio 5.3 02/26/18 10:12 Glucose 129 mg/dL (70-105) H 02/26/18 10:12 Calcium 10.8 mg/dL (8.6-10.3) H 02/26/18 10:12 Phosphorus 8.0 mg/dL (2.5-5.0) H 02/22/18 05:10 Magnesium 2.3 mg/dL (1.9-2.7) 02/22/18 05:10 Total Bilirubin 0.8 mg/dL (0.3-1.0) 02/26/18 10:12 AST 6 U/L (13-39) L 02/26/18 10:12 ALT 4 U/L (7-52) L 02/26/18 10:12 Alkaline Phosphatase 129 U/L (34-104) H 02/26/18 10:12 Troponin I 0.06 ng/mL (0.01-0.05) H 02/20/18 23:55 B-Natriuretic Peptide > 5000.0 pg/mL (5.0-100.0) H 02/21/18 05:20 Total Protein 8.4 gm/dL (6.0-8.3) H 02/26/18 10:12 Albumin 4.0 gm/dL (4.2-5.5) L 02/26/18 10:12 Globulin 4.4 gm/dL 02/26/18 10:12 Albumin/Globulin Ratio 0.9 (1.0-1.8) L 02/26/18 10:12 Hepatitis A IgM Ab Negative (Negative) 02/21/18 17:07 Hep Bs Antigen Negative (Negative) 02/21/18 17:07 Hep B Core IgM Ab Negative (Negative) 02/21/18 17:07 Hepatitis C Antibody 0.1 s/co ratio (0.0-0.9) 02/21/18 17:07 - Physical Exam Vitals and I&O: Vital Signs Temp 97.4 F 02/26/18 12:08 Pulse 92 02/26/18 12:08 Resp 18 02/26/18 12:08 BP 145/80 02/26/18 12:08 Pulse Ox 97 02/26/18 12:08 Intake & Output 02/25/18 02/26/18 02/26/18 18:59 06:59 18:59 Intake Total 800 100 Output Total 2100 Balance -1300 100 Weight (lbs) 98.43 kg 58.967 kg Intake: Oral 800 100 Output: Hemodialysis 2100 Other: # Voids 0 0 # Bowel Movements 0 Weight Source Bedscale Bedscale Active Medications: Current Medications Acetaminophen (Tylenol) 650 mg PO Q6HR PRN PRN Reason: Pain or Fever >101 Stop: 04/21/18 23:32 Amlodipine Besylate (Norvasc) 10 mg PO DAILY [facility] Stop: 04/22/18 08:59 Last Admin: 02/26/18 09:36 Dose: 10 mg Aspirin (Ecotrin) 81 mg PO DAILY [facility] Stop: 04/22/18 08:59 Last Admin: 02/26/18 09:35 Dose: 81 mg Bisacodyl (Dulcolax 10 Mg Supp) 10 mg RC DAILY PRN PRN Reason: Constipation Stop: 04/21/18 23:32 Carvedilol (Coreg) 25 mg PO BID [facility] Stop: 04/22/18 08:59 Last Admin: 02/26/18 09:36 Dose: 25 mg Cinacalcet (Sensipar) 60 mg PO DAILY [facility] Stop: 04/22/18 08:59 Last Admin: 02/26/18 09:35 Dose: 60 mg Cyanocobalamin (Vitamin B12) 1,000 mcg PO DAILY [facility] Stop: 04/22/18 08:59 Last Admin: 02/26/18 09:35 Dose: 1,000 mcg Docusate Sodium (Colace) 100 mg PO BID [facility] Stop: 04/22/18 08:59 Last Admin: 02/26/18 09:35 Dose: 100 mg Folic Acid (Folate) 1 mg PO DAILY [facility] Stop: 04/22/18 08:59 Last Admin: 02/26/18 09:35 Dose: 1 mg Heparin Sodium (Porcine) (Heparin) 5,000 units SUBQ Q12H [facility] Stop: 04/22/18 20:59 Last Admin: 02/26/18 09:52 Dose: Not Given Hydralazine HCl (Apresoline 20 Mg/Ml) 10 mg IV Q8HR PRN PRN Reason: BP MAINTENANCE (PER PROTOCOL) Stop: 04/21/18 22:58 Lactulose (Cephulac) 20 gm PO BID [facility] Stop: 04/22/18 08:59 Last Admin: 02/26/18 09:53 Dose: Not Given Lisinopril (Zestril) 5 mg PO DAILY [facility] Stop: 04/23/18 08:59 Last Admin: 02/26/18 09:36 Dose: 5 mg Miscellaneous (Vte Chemical Prophylaxis Screen/ Admission) 1 ea [facility] PRN PRN PRN Reason: PROTOCOL Stop: 04/22/18 10:02 Ondansetron HCl (Zofran Odt) 4 mg SL Q4HR PRN PRN Reason: Nausea / Vomiting Stop: 04/22/18 00:14 (Pom) Lamivudine (300mg Tablet) 1 PO DAILY [facility] Stop: 04/24/18 14:59 Last Admin: 02/26/18 09:53 Dose: Not Given (Pom) Abacavir 300mg (Tablet) 2 PO DAILY [facility] Stop: 04/24/18 14:59 Last Admin: 02/26/18 09:35 Dose: 2 (Pom) Tivicay 50mg (Tablet) 1 PO DAILY [facility] Stop: 04/24/18 14:59 Last Admin: 02/26/18 09:53 Dose: Not Given Sevelamer Carbonate (Renvela) 2,400 mg PO TIDWM [facility] Stop: 04/22/18 07:59 Last Admin: 02/26/18 12:15 Dose: Not Given Thiamine HCl (Vitamin B1) 100 mg PO DAILY [facility] Stop: 04/22/18 08:59 Last Admin: 02/26/18 09:36 Dose: 100 mg Vitamin B Complex/Vit C/Folic Acid (Vitamin B Complex W/Vitamin C) 1 tab PO DAILY [facility] Stop: 04/22/18 08:59 Last Admin: 02/26/18 09:35 Dose: 1 tab General: Alert, No acute distress HEENT: PERRLA, EOMI, Mucous membr. moist/pink Neck: Supple, +2 carotid pulse wo bruit Cardiovascular: Regular rate, Normal S1, Normal S2 Lungs: Clear to auscultation Abdomen: Bowel sounds, Soft Extremities: no Edema Neurological: Sensation intact Skin: no Rash Psych/Mental Status: Mood NL Assessment/Plan - Assessment Assessment: ESRD on HD Lethargy/Weakness 2/2 to uremia elevated BNP 2/2 to ESRD Anemia of CKD HIV Ess Htn CAD - Plan Plan: Lab - Result Diagrams 02/23/18 05:50 02/23/18 05:50 Current Medications Acetaminophen (Tylenol) 650 mg PO Q6HR PRN PRN Reason: Pain or Fever >101 Stop: 04/21/18 23:32 Amlodipine Besylate (Norvasc) 10 mg PO DAILY [facility] Stop: 04/22/18 08:59 Last Admin: 02/24/18 09:46 Dose: Not Given Aspirin (Ecotrin) 81 mg PO DAILY [facility] Stop: 04/22/18 08:59 Last Admin: 02/24/18 08:44 Dose: 81 mg Bisacodyl (Dulcolax 10 Mg Supp) 10 mg RC DAILY PRN PRN Reason: Constipation Stop: 04/21/18 23:32 Carvedilol (Coreg) 25 mg PO BID [facility] Stop: 04/22/18 08:59 Last Admin: 02/24/18 09:46 Dose: Not Given Cinacalcet (Sensipar) 60 mg PO DAILY [facility] Stop: 04/22/18 08:59 Last Admin: 02/24/18 09:46 Dose: Not Given Cyanocobalamin (Vitamin B12) 1,000 mcg PO DAILY [facility] Stop: 04/22/18 08:59 Last Admin: 02/24/18 08:41 Dose: 1,000 mcg Docusate Sodium (Colace) 100 mg PO BID [facility] Stop: 04/22/18 08:59 Last Admin: 02/24/18 08:42 Dose: 100 mg Folic Acid (Folate) 1 mg PO DAILY [facility] Stop: 04/22/18 08:59 Last Admin: 02/24/18 08:42 Dose: 1 mg Heparin Sodium (Porcine) (Heparin) 5,000 units SUBQ Q12H [facility] Stop: 04/22/18 20:59 Last Admin: 02/24/18 09:46 Dose: Not Given Hydralazine HCl (Apresoline 20 Mg/Ml) 10 mg IV Q8HR PRN PRN Reason: BP MAINTENANCE (PER PROTOCOL) Stop: 04/21/18 22:58 Lactulose (Cephulac) 20 gm PO BID [facility] Stop: 04/22/18 08:59 Last Admin: 02/24/18 09:46 Dose: Not Given Lisinopril (Zestril) 5 mg PO DAILY [facility] Stop: 04/23/18 08:59 Last Admin: 02/24/18 09:46 Dose: Not Given Miscellaneous (Vte Chemical Prophylaxis Screen/ Admission) 1 ea [facility] PRN PRN PRN Reason: PROTOCOL Stop: 04/22/18 10:02 Ondansetron HCl (Zofran Odt) 4 mg SL Q4HR PRN PRN Reason: Nausea / Vomiting Stop: 04/22/18 00:14 (Pom) Lamivudine (300mg Tablet) 1 PO DAILY [facility] Stop: 04/24/18 14:59 Last Admin: 02/24/18 09:47 Dose: Not Given (Pom) Abacavir 300mg (Tablet) 2 PO DAILY [facility] Stop: 04/24/18 14:59 Last Admin: 02/24/18 09:46 Dose: Not Given (Pom) Tivicay 50mg (Tablet) 1 PO DAILY [facility] Stop: 04/24/18 14:59 Last Admin: 02/24/18 09:47 Dose: Not Given Sevelamer Carbonate (Renvela) 2,400 mg PO TIDWM [facility] Stop: 04/22/18 07:59 Last Admin: 02/24/18 11:30 Dose: 2,400 mg Thiamine HCl (Vitamin B1) 100 mg PO DAILY [facility] Stop: 04/22/18 08:59 Last Admin: 02/24/18 08:39 Dose: 100 mg Vitamin B Complex/Vit C/Folic Acid (Vitamin B Complex W/Vitamin C) 1 tab PO DAILY [facility] Stop: 04/22/18 08:59 Last Admin: 02/24/18 08:41 Dose: 1 tab Lab - Result Diagrams 02/26/18 10:12 02/26/18 10:12 schedule for HD tomorrow continue HIV meds Nutritional Asmnt/Malnutr-PDOC - Dietary Evaluation Malnutrition Findings (Please click <Entered> for more info): Nutritional Asmnt/Malnutrition Start: 02/22/18 12: 41 Text: Status: Complete Freq: Protocol: Document 02/22/18 12:41 ZACK (Rec: 02/22/18 12:47 ZACK WALKER- [email or web address]) Nutritional Asmnt/Malnutrition Patient General Information Diagnosis CHF/ESRD Pertinent Medical Hx/Surgical Hx as of 02/22 @1242 no H&P completed Subjective Information PT asleep at time Current Diet Order/ Nutrition Support mechanical soft Pertinent Medications reviewed Pertinent Labs reviewed Nutritional Hx/Data Height 1.7 m Height (Calculated Centimeters) 170.2 Current Weight (lbs) 58.06 kg Weight (Calculated Kilograms) 58.1 Weight (Calculated Grams) 26209.8 Body Mass Index (BMI) 20.0 Weight Status Approriate GI Symptoms GI Symptoms None Cultural/Ethnic/Roman Catholic Belief unknown Usual diet at home unknown Skin Integrity/Comment: behzad score 18 Estimated Nutritional Goals BEE in Kcals: Using Current wt Calories/Kcals/Kg 25-30kcals/kg Kcals Calculated 1450-1740kcals/day Protein: Using Current wt Protein g/kg/kg Protein Calculated 58g/day Fluid: ml per MD Nutritional Problem 1. Problem Problem No nutrition diagnosis at this time Intervention/Recommendation Comments Recommend continuing MAGDY low K diet Expected Outcomes/Goals Expected Outcomes/Goals PO intake >75% of meals
--- NOTE | 2018-02-27 05:57 | Discharge Summary ---
DATE OF DISCHARGE: 02/26/2018 FINAL DIAGNOSES: 1. End-stage renal disease, received hemodialysis. 2. Hyperkalemia, resolved with dialysis. 3. Short of breath, improved. 4. Congestive heart failure with a markedly elevated BNP, stabilized. 5. Elevated troponin, stabilized. 6. HIV with medication continued. 7. Anemia of chronic disease. HOSPITAL COURSE: The patient is a 57-year-old male admitted due to short of breath, cough, severe weakness, and congestive heart failure with markedly elevated BNP. The patient was due for hemodialysis and he also had hyperkalemia. Nephrology consultation requested ____ appreciated. The patient had hemodialysis. For his minimally elevated troponin, this was probably just baseline for him with end-stage renal disease, on hemodialysis. The patient's overall condition improved during hospitalization. He was accepted back to correction. DISCHARGE CONDITION: Stable. DISPOSITION: [facility] . DISCHARGE MEDICATIONS: Continue medication from here. DIET: Continue same diet as from here. ACTIVITY: Bed rest with physical therapy. FOLLOWUP: One week. JOB# [id number]
== END 2018-02-26 20:50 | DRG 291 ==
LOC: ER 19:43 → TELE 22:45 → MSI 02-21 17:22
PROVIDERS: ADMIT Internal Medicine; ATTEND Internal Medicine
PROC: 5A1D70Z Performance of Urinary Filtration, Intermittent, Less than 6 Hours Per Day (ICD-10-PCS; principal; 2018-02-21)
PROC: 5A1D70Z Performance of Urinary Filtration, Intermittent, Less than 6 Hours Per Day (ICD-10-PCS; 2018-02-22)
PROC: 5A1D70Z Performance of Urinary Filtration, Intermittent, Less than 6 Hours Per Day (ICD-10-PCS; 2018-02-25)
DX: I13.2 Hypertensive heart and chronic kidney disease with heart failure and with stage 5 chronic kidney disease, or end stage renal disease (principal); N18.6 End stage renal disease; G93.41 Metabolic encephalopathy; E87.5 Hyperkalemia; F32.9 Major depressive disorder, single episode, unspecified; I50.9 Heart failure, unspecified; I25.10 Atherosclerotic heart disease of native coronary artery without angina pectoris; I42.9 Cardiomyopathy, unspecified; I25.2 Old myocardial infarction; F29 Unspecified psychosis not due to a substance or known physiological condition; D63.1 Anemia in chronic kidney disease; Z99.2 Dependence on renal dialysis
CPT/HCPCS: 36415-UA; 71045-TC; 80048-TC; 80053-TC; 80074-90; 83735-TC; 83880-TC; 84100-TC; 84132-TC; 84484-TC; 85025-TC; 90937; 93005; J0360; J1644; J7030; Z7610

== ENCOUNTER 2018-05-21 23:43 | Inpatient (IN) | payer MEDICARE, MEDICAID ==
[2018-05-22 00:19] LABS: % BASOPHILS 1.4 % (0.0-2.0); % EOSINOPHILS 2.8 % (0.0-5.0); % LYMPHOCYTES 17.1 % (20.0-50.0); % MONOCYTES 9.4 % (2.0-10.0); % NEUTROPHILS 69.3 % (40.0-80.0); BASOPHILE ABSOLUTE 0.1 Th/cumm (0-0.2); EOSINOPHILE ABSOLUTE 0.2 Th/cmm (0.1-0.4); HEMATOCRIT 33.2 % (41.0-60); HEMOGLOBIN 11.4 gm/dL (12-16); LYMPHOCYTE ABSOLUTE 1.1 Th/cmm (1.5-3.0); MEAN CELL VOLUME 95.1 fl (80-99); MEAN CORPUSCULAR HEMOGLOBIN 32.7 pg (26.0-30.0); MEAN CORPUSCULAR HGB CONC 34.3 pg (28.0-36.0); MEAN PLATELET VOLUME 7.5 fl; MONOCYTE ABSOLUTE 0.6 Th/cmm (0.3-1.0); NEUTROPHILE ABSOLUTE 4.3 Th/cmm (1.8-8.0); PLATELET COUNT 201 Th/cmm (150-400); RED BLOOD COUNT 3.49 Mil/cmm (4.30-5.70); WHITE BLOOD COUNT 6.3 Th/cmm (4.8-10.8)
[2018-05-22 00:34] LABS: ALB/GLOB RATIO 1.2 (1.0-1.8); ALBUMIN 4.2 gm/dL (4.2-5.5); ANION GAP 19.1 (7.0-16.0); BILIRUBIN,TOTAL 0.5 mg/dL (0.3-1.0); CALCIUM SERUM 9.6 mg/dL (8.6-10.3); CARBON DIOXIDE 22.2 mEq/L (21.0-31.0); GFR AFRICAN-AMERICAN 5.4 ml/min (>90); GFR NON AFRICAN-AMERICAN 4.5 ml/min; TOTAL PROTEIN,SERUM 7.6 gm/dL (6.0-8.3)
[2018-05-22 00:41] LABS: POTASSIUM SERUM 6.3 mEq/L (3.5-5.1)
[2018-05-22 00:42] LABS: CREATININE - SERUM 12.3 mg/dL (0.7-1.3)
[2018-05-22] MEDS ORDERED: Dextrose 50% 50 mL Abboject IVP ONE (00:44)
[2018-05-22] MEDS ORDERED: INSULIN HUMAN REGULAR 100 UNITS/ML UNIT ONE (00:45)
--- NOTE | 2018-05-22 00:56 | ED Physician Chart ---
ED Chief Complaint/HPI - Patient Information Date Seen:: 05/22/18 Time Seen:: 00:52 Chief Complaint:: weakness History of Present Illness:: 57 yr old male here for generalized weakness hx of HIV ESRD HTN Allergies:: Allergies Allergy/AdvReac Type Severity Reaction Status Date / Time ibuprofen Allergy Verified 05/21/18 23:55 Vitals:: Vital Signs - 8 hr 05/21/18 23:45 Temp 97.8 F HR 60 RR 18 BP 133/69 O2 Sat % 96 ED Review of Systems - Review of Systems General/Constitutional: No fever Skin: No skin lesions Head: No headache Eyes: No loss of vision ENT: No earache Neck: No neck pain Cardio Vascular: No chest pain Pulmonary: No SOB GI: No vomiting G/U: No dysuria Musculoskeletal: No bone or joint pain Psychiatric: Depression Neurological: No seizure ED Past Medical History - Past Medical History Past Medical History: HTN, ESRD, Other (HIV ) Family Medical History - Family Member Mother History Unknown: Yes ED Physical Exam - Physical Examination General/Constitutional: Awake, Well-developed, well-nourished, Alert, No distress, GCS 15, Non-toxic appearing, Ambulatory Head: Atraumatic Eyes: Lids, conjuctiva normal, PERRL, EOMI Skin: Nl inspection, No rash, No skin lesions, No ecchymosis, Well hydrated, No lymphadenopathy ENMT: External ears, nose nl, Nasal exam nl, Lips, teeth, gums nl Neck: Nontender, Full ROM w/o pain, No JVD, No nuchal rigidity, No bruit, No mass, No stridor Respiratory: Nl effort/Exclusion, Clear to Auscultation, No Wheeze/Rhonchi/Rales Cardio Vascular: RRR, No murmur, gallop, rubs, NL S1 S2 GI: No tenderness/rebounding/guarding, No organomegaly, No hernia, Normal BS's, Nondistended, No mass/bruits, No McBurney tenderness : No CVA tenderness Extremities: No tenderness or effusion, Full ROM, normal strength in all extremities, No edema, Normal digits & nails Neuro/Psych: Alert/oriented, DTR's symmetric, Normal sensory exam, Normal motor strength, Judgement/insight normal, Mood normal, Normal gait, No focal deficits Misc: Normal back, No paraspinal tenderness ED Labs/Radiology/EKG Results - Lab Results Results: Laboratory Tests 05/22/18 05/22/18 05/22/18 00:10 00:10 00:10 WBC 6.3 RBC 3.49 L Hgb 11.4 L Hct 33.2 L MCV 95.1 MCH 32.7 H MCHC Differential 34.3 RDW 16.0 Plt Count 201 MPV 7.5 Neutrophils % 69.3 Lymphocytes % 17.1 L Monocytes % 9.4 Eosinophils % 2.8 Basophils % 1.4 Sodium 132 L Potassium 6.3 H* Chloride 97 L Carbon Dioxide 22.2 Anion Gap 19.1 H BUN 55 H Creatinine 12.3 H* Est GFR ( Amer) 5.4 Est GFR (Non-Af Amer) 4.5 BUN/Creatinine Ratio 4.5 Glucose 93 Calcium 9.6 Total Bilirubin 0.5 AST 12 L ALT 8 Alkaline Phosphatase 96 Troponin I 0.04 Total Protein 7.6 Albumin 4.2 Globulin 3.4 Albumin/Globulin Ratio 1.2 ED Assessment - Assessment General Assessment: HYPERKALEMIA ESRD ED Septic Shock - . Is Septic Shock (SBP<90, OR Lactate>4 mmol\L) present?: No - <6hrs of presentation: Vital Signs: Vital Signs - 8 hr 05/21/18 23:45 Temp 97.8 F HR 60 RR 18 BP 133/69 O2 Sat % 96 Assessment of Lungs: Lung CTA bilateral Assessment of Heart: RRR, No Rub Capillary refill evaluation: Capillary refill < 2 secs ED Reassessment (Disposition) - Diagnosis Diagnosis:: HIV ESRD HYPERKALEMIA - Aftercare/Follow up Instructions Aftercare/Follow-Up Instructions:: Refer to Discharge Instructions - Patient Disposition Discharge/Transfer:: Acute Care w/in this hosp
[2018-05-22] MEDS ORDERED: INSULIN HUMAN REGULAR 100 UNITS/ML UNIT IVP ONE (00:58)
[2018-05-22] MEDS ORDERED: Dextrose 50% 50 mL Abboject IVP STA (00:58)
[2018-05-22] MEDS ORDERED: Sodium Chloride 0.9% 500 ML IV ONE (01:02)
[2018-05-22 02:39] LABS: ANION GAP 17.1 (7.0-16.0); CALCIUM SERUM 8.3 mg/dL (8.6-10.3); CARBON DIOXIDE 20.1 mEq/L (21.0-31.0); GFR AFRICAN-AMERICAN 6.1 ml/min (>90); POTASSIUM SERUM 5.2 mEq/L (3.5-5.1)
[2018-05-22 02:48] LABS: CREATININE - SERUM 11.2 mg/dL (0.7-1.3)
--- NOTE | 2018-05-22 08:24 | Diagnostic Imaging Report ---
Head CT without intravenous contrast Indication: Altered level of consciousness Comparison: None Technique: Axial images were obtained from the vertex to the skull base without IV contrast. Coronal reconstructions were made. Total DLP: 1161, [id number] FINDINGS: Images of the brain obtained without contrast history no evidence of acute hemorrhage. Atrophy is noted. Diffuse white matter disease is noted. The ventricles and basal cisterns are patent. No mass effect or midline shift. There is diffuse atherosclerotic vascular disease with tortuous vessels of the intracranial arterial vasculature. Is evaluation for skull fracture is limited due to motion. Soft tissue swelling. IMPRESSION: Limited exam due to motion. No evidence of acute intracranial hemorrhage. Diffuse atrophy. Diffuse supratentorial white matter disease which is nonspecific and may be due to chronic microvessel ischemia. Extensive atherosclerotic vascular disease with tortuous intracranial arterial vasculature.
--- NOTE | 2018-05-22 08:26 | Diagnostic Imaging Report ---
Exam: Portable chest x-ray supine. HISTORY: Cough. Findings: Portable supine examination of the chest at 0025 hours reviewed and compared to prior examination of 02/16/2014 demonstrates cardiomegaly. Aorta is calcified. Fractures of right rib cage appreciated. No acute pulmonic infiltrates or effusions are noted. Bony thorax is intact. IMPRESSION: Cardiomegaly, calcified aorta No acute disease.
[2018-05-22] MEDS ORDERED: Albumin 25% 12.5gm/50mL 12.5 GM/50 ML BTL IV PRN (12:59)
[2018-05-22] MEDS ORDERED: Heparin Sodium 1,000 Units/mL Vial IVP ONE (14:38)
[2018-05-23] MEDS ORDERED: Heparin Sodium 1,000 Units/mL Vial HD SCH
--- NOTE | 2018-05-23 01:11 | History & Physical ---
ADMIT DATE: 05/22/2018 CHIEF COMPLAINT: Shortness of breath and weakness. HISTORY OF PRESENT ILLNESS: The patient is a 57-year-old male admitted from the Emergency Room to telemetry floor of [facility] due to multiple complicated medical conditions. The patient felt very weak compared to his baseline status. The patient wanted to be transferred to the Emergency Room. His potassium is 6.3. In the Emergency Room, sodium 132, BUN 55, creatinine 3.3. The patient is somewhat confused as well and very lethargic. His troponin is 0.04. Kayexalate was given in the Emergency Room. On repeat examination, the potassium was down to 5.2 from 6.3. I had ordered to give another Kayexalate 30 grams p.o. x 1. We will repeat BMP in the morning. PAST MEDICAL HISTORY: End-stage renal disease on hemodialysis, hypertension, weakness, HIV, dysphagia, decubitus ulcer. PAST SURGICAL HISTORY: This cannot be reliably obtained. REVIEW OF SYSTEMS: As per HPI. PHYSICAL EXAMINATION: GENERAL: Well-developed, thin male, in no acute distress. SKIN: There is some excoriation. VITAL SIGNS: Basically stable except for hypertension. HEENT: Normocephalic, atraumatic. Pupils equal, round, react to light and accommodation. CHEST: Symmetrical. LUNGS: Few wheezing appreciated. CARDIAC: Normal sinus rhythm. S1, S2. ABDOMEN: Benign, soft, nontender. EXTREMITIES: No clubbing, cyanosis, or edema . NEUROLOGICAL: Unremarkable. LABORATORY DATA: Revealed a sodium 132, potassium 6.3, BUN 55, creatinine 3.3. ASSESSMENT: 1. Hyperkalemia: Kayexalate was given 30 grams in the ER and repeated, but the potassium is still high. We will repeat in the morning. 2. Weakness: Multifactorial. 3. Fall precaution. 4. End-stage renal disease on hemodialysis. 5. Hyponatremia. 6. Hypertension. 7. Adjust medications as necessary. 8. HIV: Continue medication. 9. Altered level of consciousness on and off due to metabolic encephalopathy and dementia. 10. Deep venous thrombosis prophylaxis. JOB# [id number]
--- NOTE | 2018-05-23 03:47 | Consultation ---
DATE OF CONSULTATION: 05/22/2018 REASON FOR CONSULTATION: Electrolyte imbalance and fluid management. HISTORY OF PRESENT ILLNESS: This is a 57-year-old male with past medical history of end-stage renal disease, on hemodialysis, was brought in because of generalized weakness. A few hours prior to admission, the patient was noted by [facility] staff to have developed generalized weakness, this gradually progressed. The patient was then brought to the Emergency Room. His temperature was 97.8, white count of 6.3, hemoglobin/hematocrit of 11.4/37.2. CT of the head showed no acute disease, diffuse atrophy, chronic mitral vessel ischemia and extensive atherosclerotic disease. Chest x-ray was negative for any acute disease. The patient has a history of dialysis and dialyzed at [facility]. His potassium was 6.3 on arrival. He received insulin with D50 and his potassium improved to 5.2. PAST MEDICAL HISTORY: 1. End-stage renal disease, on hemodialysis. 2. HIV. 3. Essential hypertension. 4. Metabolic encephalopathy. 5. Cardiomyopathy with history of CHF. 6. Coronary artery disease, status post NSTEMI. 7. Anemia of chronic kidney disease. CURRENT MEDICATIONS: He is currently on Kayexalate, heparin, and D50. ALLERGIES: Allergic to IBUPROFEN. SOCIAL AND FAMILY HISTORY: I was not able to obtain directly from the patient because he is nonverbal. REVIEW OF SYSTEMS: Again, I was not able to decipher from the patient because of the same reason. PHYSICAL EXAMINATION: GENERAL: The patient is awake, looks depressed, remains nonverbal, noninteractive. VITAL SIGNS: Blood pressure is 117/68, pulse 68, and temperature 97.4 degrees. SKIN: Good turgor, warm, no rash, no jaundice appreciated. HEENT: Head normocephalic, atraumatic. Eyes: Extraocular muscles intact. Pupils equal, round, reactive to light and accommodates. Anicteric sclerae. Pale conjunctivae. Nose: Midline nasal septum. Mouth: Dry mucosa, adequate dentition. NECK: Supple, no adenopathy, no thyromegaly, no bruits. Trachea palpated in the midline. CHEST AND CARDIOVASCULAR: S1, S2. No rub nor gallop appreciated. He does have a murmur 3/6 along the left sternal border as well as right sternal border. No abdominal or femoral bruits appreciated. LUNGS: Equal expansion. No use of accessory muscles. No supraclavicular retractions. Decreased breath sounds, but clear to auscultation without any wheeze. ABDOMEN: Mildly globular, soft. Positive for bowel sounds. No bruits either diastolic or systolic. RECTAL: The patient refused. GENITOURINARY: Normal appearing male genitalia. MUSCULOSKELETAL: No effusions present in his joints, but unable to assess his range of motion. EXTREMITIES: No evidence of any edema, cyanosis, nor clubbing with palpable femoral, popliteal and dorsalis pedis pulses. NEUROLOGIC: The patient is alert, verbal, motor is 5/5. Cranial nerves III through XII intact. Sensory intact. LABORATORY DATA AND STUDIES: Did reveal white count 6.3, hemoglobin 11.4, hematocrit 33.2, platelets 201, polys 69.3%. Sodium 135, potassium 5.2, chloride 103, bicarbonate 20, BUN 52, creatinine 11.2, glucose 86, calcium 8.3, and albumin 4.2. IMPRESSION: 1. End-stage renal disease, on hemodialysis. 2. Generalized weakness, possibly from an evolving cerebrovascular accident, severe myopathy secondary to metabolic in nature, complication of HIV, or side effect of drugs. 3. Human immunodeficiency virus. 4. Essential hypertension with chronic kidney disease. 5. Metabolic encephalopathy. 6. Cardiomyopathy with history of congestive heart failure. 7. Coronary artery disease, status post non-ST elevation myocardial infarction. 8. Anemia of chronic kidney disease. 9. Functional quadriplegia. PLAN: 1. Hemodialysis as scheduled. 2. Continue to follow up electrolytes and CBC. Thank you Dr. Diaz for this consult and I will follow this patient with you. JOB# [id number]
[2018-05-23 05:34] LABS: % BASOPHILS 0.8 % (0.0-2.0); % EOSINOPHILS 3.9 % (0.0-5.0); % LYMPHOCYTES 19.7 % (20.0-50.0); % MONOCYTES 11.9 % (2.0-10.0); % NEUTROPHILS 63.7 % (40.0-80.0); EOSINOPHILE ABSOLUTE 0.2 Th/cmm (0.1-0.4); HEMATOCRIT 28.5 % (41.0-60); HEMOGLOBIN 9.7 gm/dL (12-16); LYMPHOCYTE ABSOLUTE 0.8 Th/cmm (1.5-3.0); MEAN CELL VOLUME 96.5 fl (80-99); MEAN CORPUSCULAR HEMOGLOBIN 32.7 pg (26.0-30.0); MEAN CORPUSCULAR HGB CONC 33.9 pg (28.0-36.0); MONOCYTE ABSOLUTE 0.5 Th/cmm (0.3-1.0); NEUTROPHILE ABSOLUTE 2.8 Th/cmm (1.8-8.0); PLATELET COUNT 178 Th/cmm (150-400); RED BLOOD COUNT 2.96 Mil/cmm (4.30-5.70); WHITE BLOOD COUNT 4.3 Th/cmm (4.8-10.8)
[2018-05-23 05:48] LABS: ALB/GLOB RATIO 1.2 (1.0-1.8); ALBUMIN 3.7 gm/dL (4.2-5.5); ANION GAP 14.6 (7.0-16.0); BILIRUBIN,TOTAL 0.5 mg/dL (0.3-1.0); CALCIUM SERUM 9.3 mg/dL (8.6-10.3); CARBON DIOXIDE 24.6 mEq/L (21.0-31.0); GFR AFRICAN-AMERICAN 8.7 ml/min (>90); GFR NON AFRICAN-AMERICAN 7.2 ml/min; POTASSIUM SERUM 4.2 mEq/L (3.5-5.1); TOTAL PROTEIN,SERUM 6.9 gm/dL (6.0-8.3)
[2018-05-23 06:04] LABS: CREATININE - SERUM 8.2 mg/dL (0.7-1.3)
[2018-05-23] MEDS ORDERED: Pneumococcal Vaccine 0.5 mL Vial IM ONE (09:00)
--- NOTE | 2018-05-23 13:12 | General Progress Note ---
Subjective - Review of Systems Service Date: 05/23/18 Subjective: eyes open, nonverbal Objective - Results Result Diagrams: 05/23/18 05:15 05/23/18 05:15 Recent Labs: Laboratory Last Values WBC 4.3 Th/cmm (4.8-10.8) L 05/23/18 05:15 RBC 2.96 Mil/cmm (4.30-5.70) L 05/23/18 05:15 Hgb 9.7 gm/dL (12-16) L 05/23/18 05:15 Hct 28.5 % (41.0-60) L 05/23/18 05:15 MCV 96.5 fl (80-99) 05/23/18 05:15 MCH 32.7 pg (26.0-30.0) H 05/23/18 05:15 MCHC Differential 33.9 pg (28.0-36.0) 05/23/18 05:15 RDW 16.0 % (11.5-20.0) 05/23/18 05:15 Plt Count 178 Th/cmm (150-400) 05/23/18 05:15 MPV 7.0 fl 05/23/18 05:15 Neutrophils % 63.7 % (40.0-80.0) 05/23/18 05:15 Lymphocytes % 19.7 % (20.0-50.0) L 05/23/18 05:15 Monocytes % 11.9 % (2.0-10.0) H 05/23/18 05:15 Eosinophils % 3.9 % (0.0-5.0) 05/23/18 05:15 Basophils % 0.8 % (0.0-2.0) 05/23/18 05:15 Sodium 138 mEq/L (136-145) 05/23/18 05:15 Potassium 4.2 mEq/L (3.5-5.1) 05/23/18 05:15 Chloride 103 mEq/L (98-107) 05/23/18 05:15 Carbon Dioxide 24.6 mEq/L (21.0-31.0) 05/23/18 05:15 Anion Gap 14.6 (7.0-16.0) 05/23/18 05:15 BUN 29 mg/dL (7-25) H 05/23/18 05:15 Creatinine 8.2 mg/dL (0.7-1.3) H* 05/23/18 05:15 Est GFR ( Amer) 8.7 ml/min (>90) 05/23/18 05:15 Est GFR (Non-Af Amer) 7.2 ml/min 05/23/18 05:15 BUN/Creatinine Ratio 3.5 05/23/18 05:15 Glucose 80 mg/dL (70-105) 05/23/18 05:15 Calcium 9.3 mg/dL (8.6-10.3) 05/23/18 05:15 Total Bilirubin 0.5 mg/dL (0.3-1.0) 05/23/18 05:15 AST 11 U/L (13-39) L 05/23/18 05:15 ALT 6 U/L (7-52) L 05/23/18 05:15 Alkaline Phosphatase 80 U/L (34-104) 05/23/18 05:15 Troponin I 0.04 ng/mL (0.01-0.05) 05/22/18 00:10 Total Protein 6.9 gm/dL (6.0-8.3) 05/23/18 05:15 Albumin 3.7 gm/dL (4.2-5.5) L 05/23/18 05:15 Globulin 3.2 gm/dL 05/23/18 05:15 Albumin/Globulin Ratio 1.2 (1.0-1.8) 05/23/18 05:15 - Physical Exam Vitals and I&O: Vital Signs Temp 97.4 F 05/23/18 11:51 Pulse 79 05/23/18 11:51 Resp 18 05/23/18 11:51 BP 150/89 05/23/18 11:51 Pulse Ox 97 05/23/18 11:51 Intake & Output 05/22/18 05/23/18 05/23/18 18:59 06:59 18:59 Intake Total 360 200 Output Total 2500 0 Balance -2140 200 Weight (lbs) 60.781 kg 51.256 kg 51.256 kg Intake: Oral 360 200 Output: Urine 0 Hemodialysis 2500 Other: # Voids 0 Weight Source Estimated Bedscale Estimated Active Medications: Current Medications Heparin Sodium (Porcine) (Heparin) 2,000 units HD UD OLIVIA Stop: 05/24/18 00:00 General: No acute distress HEENT: Atraumatic, PERRLA, Mucous membr. moist/pink Neck: Supple, +2 carotid pulse wo bruit Cardiovascular: Regular rate, Normal S1, Normal S2 Lungs: Clear to auscultation Abdomen: Bowel sounds, Soft Extremities: no Edema Neurological: Sensation intact Skin: no Rash Psych/Mental Status: Mood NL - Procedures Procedures: Procedures Procedure Code Date PERFORMANCE OF URINARY FILTRATION, <6 HRS/DAY [id number] 02/20/18 Assessment/Plan - Assessment Assessment: ESRD on HD Gen weakness HIV Ess Htn w/ CKD Met Enceph CAD Anemia of CD Fnc Quadriplegia - Plan Plan: Current Medications Heparin Sodium (Porcine) (Heparin) 2,000 units HD UD [facility] Stop: 05/24/18 00:00 Lab - Result Diagrams 05/23/18 05:15 05/23/18 05:15 schedule for HD in am f/u electrolytes
--- NOTE | 2018-05-23 22:24 | Internal Medicine Prog Note ---
Internal Medicine Subjective - Subjective Service Date: 05/23/18 Patient seen and examined:: without staff Patient is:: awake, interactive Per staff patient has:: no adverse event Internal Medicine Objective - Results Result Diagrams: 05/23/18 05:15 05/23/18 05:15 Recent Labs: Laboratory Last Values WBC 4.3 Th/cmm (4.8-10.8) L 05/23/18 05:15 RBC 2.96 Mil/cmm (4.30-5.70) L 05/23/18 05:15 Hgb 9.7 gm/dL (12-16) L 05/23/18 05:15 Hct 28.5 % (41.0-60) L 05/23/18 05:15 MCV 96.5 fl (80-99) 05/23/18 05:15 MCH 32.7 pg (26.0-30.0) H 05/23/18 05:15 MCHC Differential 33.9 pg (28.0-36.0) 05/23/18 05:15 RDW 16.0 % (11.5-20.0) 05/23/18 05:15 Plt Count 178 Th/cmm (150-400) 05/23/18 05:15 MPV 7.0 fl 05/23/18 05:15 Neutrophils % 63.7 % (40.0-80.0) 05/23/18 05:15 Lymphocytes % 19.7 % (20.0-50.0) L 05/23/18 05:15 Monocytes % 11.9 % (2.0-10.0) H 05/23/18 05:15 Eosinophils % 3.9 % (0.0-5.0) 05/23/18 05:15 Basophils % 0.8 % (0.0-2.0) 05/23/18 05:15 Sodium 138 mEq/L (136-145) 05/23/18 05:15 Potassium 4.2 mEq/L (3.5-5.1) 05/23/18 05:15 Chloride 103 mEq/L (98-107) 05/23/18 05:15 Carbon Dioxide 24.6 mEq/L (21.0-31.0) 05/23/18 05:15 Anion Gap 14.6 (7.0-16.0) 05/23/18 05:15 BUN 29 mg/dL (7-25) H 05/23/18 05:15 Creatinine 8.2 mg/dL (0.7-1.3) H* 05/23/18 05:15 Est GFR ( Amer) 8.7 ml/min (>90) 05/23/18 05:15 Est GFR (Non-Af Amer) 7.2 ml/min 05/23/18 05:15 BUN/Creatinine Ratio 3.5 05/23/18 05:15 Glucose 80 mg/dL (70-105) 05/23/18 05:15 Calcium 9.3 mg/dL (8.6-10.3) 05/23/18 05:15 Total Bilirubin 0.5 mg/dL (0.3-1.0) 05/23/18 05:15 AST 11 U/L (13-39) L 05/23/18 05:15 ALT 6 U/L (7-52) L 05/23/18 05:15 Alkaline Phosphatase 80 U/L (34-104) 05/23/18 05:15 Troponin I 0.04 ng/mL (0.01-0.05) 05/22/18 00:10 Total Protein 6.9 gm/dL (6.0-8.3) 05/23/18 05:15 Albumin 3.7 gm/dL (4.2-5.5) L 05/23/18 05:15 Globulin 3.2 gm/dL 05/23/18 05:15 Albumin/Globulin Ratio 1.2 (1.0-1.8) 05/23/18 05:15 - Physical Exam Vitals and I&O: Vital Signs Temp 97.4 F 05/23/18 20:00 Pulse 77 05/23/18 20:00 Resp 17 05/23/18 20:00 BP 169/75 05/23/18 20:00 Pulse Ox 97 05/23/18 20:00 Intake & Output 05/23/18 05/23/18 05/24/18 06:59 18:59 06:59 Intake Total 200 Output Total 0 Balance 200 Weight (lbs) 51.256 kg 51.256 kg Intake: Oral 200 Output: Urine 0 Other: # Voids 0 Weight Source Bedscale Estimated Active Medications: Current Medications Acetaminophen (Tylenol) 650 mg PO Q6HR PRN PRN Reason: Pain or Fever >101 Stop: 07/22/18 22:17 Amlodipine Besylate (Norvasc) 10 mg PO DAILY OLIVIA Stop: 07/23/18 08:59 Aspirin (Ecotrin) 81 mg PO DAILY OLIVIA Stop: 07/23/18 08:59 Cyanocobalamin (Vitamin B12) 1,000 mcg PO DAILY OLIVIA Stop: 07/23/18 08:59 Folic Acid (Folate) 1 mg PO DAILY OLIVIA Stop: 07/23/18 08:59 Heparin Sodium (Porcine) (Heparin) 2,000 units HD UD OLIVIA Stop: 05/24/18 00:00 Lisinopril (Zestril) 5 mg PO HS OLIVIA Stop: 07/23/18 20:59 Miscellaneous (Abacavir Sulfate [Ziagen]) 300 mg PO BID OLIVIA Stop: 07/23/18 08:59 Miscellaneous (Carvedilol [Coreg]) 25 mg PO BID OLIVIA Stop: 07/23/18 08:59 Miscellaneous (Cinacalcet Hcl [Sensipar]) 30 mg PO DAILY OLIVIA Stop: 07/23/18 08:59 Miscellaneous (Docusate Sodium [Docusate Sodium]) 100 mg PO BID OLIVIA Stop: 07/23/18 08:59 Miscellaneous (Dolutegravir Sodium [Tivicay]) 50 mg PO DAILY OLIVIA Stop: 07/23/18 08:59 Miscellaneous (Lactulose [Lactulose]) 30 ml PO BID OLIVIA Stop: 07/23/18 08:59 Miscellaneous (Lamivudine [Epivir]) 300 mg PO DAILY OLIVIA Stop: 07/23/18 08:59 Miscellaneous (Ondansetron Hcl [Zofran*]) 4 mg PO Q4HR PRN PRN Reason: Nausea / Vomiting Miscellaneous (Sevelamer Carbonate [Renvela]) 2.4 gm PO TID OLIVIA Stop: 07/23/18 08:59 Miscellaneous (Vit B Comp No.3/Folic/C/Biotin [Nephro-Alex Rx Tablet]) 1 tab PO DAILY OLIVIA Stop: 07/23/18 08:59 Thiamine HCl (Vitamin B1) 100 mg PO DAILY OLIVIA Stop: 07/23/18 08:59 General: weak, lethargic, thin HEENT: NC/AT, PERRLA, EOMI, anicteric sclerae, throat clear Neck: Supple, No JVD, No thyromegaly Lungs: CTAB, congested Cardiovascular: RRR, Normal S1, Normal S2 Abdomen: soft, non-tender, non-distended, positive bowel sound Extremities: clear, edema - Procedures Procedures: Procedures Procedure Code Date PERFORMANCE OF URINARY FILTRATION, <6 HRS/DAY [id number] 02/20/18 Internal Medicine Assmt/Plan - Assessment Assessment: ESRD: HD Hyperkalemia: corrected. Weakness: multifactorial. HIV: continue meds. HTN: observe and may need to adjust BP meds. ALOC: on and off; observe. Nutritional Asmnt/Malnutr-PDOC - Dietary Evaluation Malnutrition Findings (Please click <Entered> for more info): Nutritional Asmnt/Malnutrition Start: 05/23/18 17: 03 Text: Status: Complete Freq: Protocol: Document 05/23/18 17:03 CORIE (Rec: 05/23/18 17:12 CORIE [email or web address]) Nutritional Asmnt/Malnutrition Patient General Information Nutritional Screening High Risk Consult Diagnosis generalized weakness, hyperkalemia ESRD Pertinent Medical Hx/Surgical Hx HTN, ESRD, HIV Subjective Information Pt seen eating lunch in bed at time of visit, not answering RD questions. Per EMR, PO intake 50-100%. Consult received for 50-100%. Pt is on dialysis. Per EMR. pt consumed 50% of breakfast today. Current Diet Order/ Nutrition Support pureed, nectar, low patassium, no dairy Pertinent Medications heparin Pertinent Labs 05/23 BUN 29, Cr 8.2, Alb 3.7 Nutritional Hx/Data Height 1.7 m Height (Calculated Centimeters) 170.2 Current Weight (lbs) 51.256 kg Weight (Calculated Kilograms) 51.3 Weight (Calculated Grams) 82262.9 [place] Body Weight 148 Body Mass Index (BMI) 17.6 Weight Status Underweight GI Symptoms GI Symptoms None Last BM not indicated Difficult in: None Skin Integrity/Comment: intact Current %PO Fair (50-74%) Estimated Nutritional Goals BEE in Kcals: Using Current wt Calories/Kcals/Kg 30-35 Kcals Calculated 5530-1083 Protein: Using Current wt Protein g/k.2-1.4 Protein Calculated 61-71 Fluid: ml fluid restriction 1500ml per MD Nutritional Problem 2. Problem Problem increased nutrition needs ( calorie and protein) Etiology increased metabolic demand Signs/Symptoms: pt on dialysis, underweight and hx of HIV 1. Problem Problem altered nutrition related labs Etiology hx of ESRD Signs/Symptoms: BUN 29, Cr 8.2 Intervention/Recommendation Comments 1. Continue with current diet as ordered. Encourage oral intake. Nurse to assist pt with meals as needed. 2. Monitor PO intake, wt, labs and skin integrity 3. F/U as high risk in 2-3 day ,s 05/25-05/26 Expected Outcomes/Goals Expected Outcomes/Goals 1. PO intake to meet at least 75% of nutritional needs. 2. Wt stability, skin to remain intact, labs to approach WNL.
[2018-05-24] MEDS: Vitamin B Complex w/Vitamin C Tab PO SCH (08:38)
[2018-05-24] MEDS: Lactulose 10 Gm/15 mL 30mL UDC PO SCH ×2 (08:47→16:23)
[2018-05-24] MEDS ORDERED: DOLUTEGRAVIR SODIUM 50 MG PO SCH (09:00)
[2018-05-24] MEDS ORDERED: LAMIVUDINE 300 MG PO SCH (09:00)
[2018-05-24] MEDS ORDERED: ABACAVIR SULFATE 300 MG PO SCH (09:00)
--- NOTE | 2018-05-24 13:15 | General Progress Note ---
Subjective - Review of Systems Service Date: 05/24/18 Subjective: eyes open, nonverbal Objective - Results Result Diagrams: 05/23/18 05:15 05/23/18 05:15 Recent Labs: Laboratory Last Values WBC 4.3 Th/cmm (4.8-10.8) L 05/23/18 05:15 RBC 2.96 Mil/cmm (4.30-5.70) L 05/23/18 05:15 Hgb 9.7 gm/dL (12-16) L 05/23/18 05:15 Hct 28.5 % (41.0-60) L 05/23/18 05:15 MCV 96.5 fl (80-99) 05/23/18 05:15 MCH 32.7 pg (26.0-30.0) H 05/23/18 05:15 MCHC Differential 33.9 pg (28.0-36.0) 05/23/18 05:15 RDW 16.0 % (11.5-20.0) 05/23/18 05:15 Plt Count 178 Th/cmm (150-400) 05/23/18 05:15 MPV 7.0 fl 05/23/18 05:15 Neutrophils % 63.7 % (40.0-80.0) 05/23/18 05:15 Lymphocytes % 19.7 % (20.0-50.0) L 05/23/18 05:15 Monocytes % 11.9 % (2.0-10.0) H 05/23/18 05:15 Eosinophils % 3.9 % (0.0-5.0) 05/23/18 05:15 Basophils % 0.8 % (0.0-2.0) 05/23/18 05:15 Sodium 138 mEq/L (136-145) 05/23/18 05:15 Potassium 4.2 mEq/L (3.5-5.1) 05/23/18 05:15 Chloride 103 mEq/L (98-107) 05/23/18 05:15 Carbon Dioxide 24.6 mEq/L (21.0-31.0) 05/23/18 05:15 Anion Gap 14.6 (7.0-16.0) 05/23/18 05:15 BUN 29 mg/dL (7-25) H 05/23/18 05:15 Creatinine 8.2 mg/dL (0.7-1.3) H* 05/23/18 05:15 Est GFR ( Amer) 8.7 ml/min (>90) 05/23/18 05:15 Est GFR (Non-Af Amer) 7.2 ml/min 05/23/18 05:15 BUN/Creatinine Ratio 3.5 05/23/18 05:15 Glucose 80 mg/dL (70-105) 05/23/18 05:15 Calcium 9.3 mg/dL (8.6-10.3) 05/23/18 05:15 Total Bilirubin 0.5 mg/dL (0.3-1.0) 05/23/18 05:15 AST 11 U/L (13-39) L 05/23/18 05:15 ALT 6 U/L (7-52) L 05/23/18 05:15 Alkaline Phosphatase 80 U/L (34-104) 05/23/18 05:15 Troponin I 0.04 ng/mL (0.01-0.05) 05/22/18 00:10 Total Protein 6.9 gm/dL (6.0-8.3) 05/23/18 05:15 Albumin 3.7 gm/dL (4.2-5.5) L 05/23/18 05:15 Globulin 3.2 gm/dL 05/23/18 05:15 Albumin/Globulin Ratio 1.2 (1.0-1.8) 05/23/18 05:15 - Physical Exam Vitals and I&O: Vital Signs Temp 98.2 F 05/24/18 12:00 Pulse 76 05/24/18 12:00 Resp 17 05/24/18 12:00 BP 139/72 05/24/18 12:00 Pulse Ox 100 05/24/18 12:00 Intake & Output 05/23/18 05/24/18 05/24/18 18:59 06:59 18:59 Intake Total 100 Output Total 0 Balance 100 Weight (lbs) 51.256 kg 51.71 kg Intake: Oral 100 Output: Urine 0 Other: # Voids 0 Weight Source Estimated Bedscale Active Medications: Current Medications Acetaminophen (Tylenol) 650 mg PO Q6HR PRN PRN Reason: Pain or Fever >101 Stop: 07/22/18 22:17 Amlodipine Besylate (Norvasc) 10 mg PO DAILY [facility] Stop: 07/23/18 08:59 Last Admin: 05/24/18 08:39 Dose: 10 mg Aspirin (Ecotrin) 81 mg PO DAILY [facility] Stop: 07/23/18 08:59 Last Admin: 05/24/18 08:39 Dose: 81 mg Carvedilol (Coreg) 25 mg PO BID [facility] Stop: 07/23/18 08:59 Last Admin: 05/24/18 08:40 Dose: 25 mg Cinacalcet (Sensipar) 30 mg PO DAILY [facility] Stop: 07/23/18 08:59 Last Admin: 05/24/18 08:40 Dose: 30 mg Cyanocobalamin (Vitamin B12) 1,000 mcg PO DAILY [facility] Stop: 07/23/18 08:59 Last Admin: 05/24/18 08:40 Dose: 1,000 mcg Docusate Sodium (Colace) 100 mg PO BID [facility] Stop: 07/23/18 08:59 Last Admin: 05/24/18 08:39 Dose: 100 mg Folic Acid (Folate) 1 mg PO DAILY [facility] Stop: 07/23/18 08:59 Last Admin: 05/24/18 08:40 Dose: 1 mg Lactulose (Cephulac) 20 gm PO BID [facility] Stop: 07/23/18 08:59 Last Admin: 05/24/18 08:47 Dose: 20 gm Lisinopril (Zestril) 5 mg PO HS [facility] Stop: 07/23/18 20:59 Miscellaneous (Abacavir Sulfate [Ziagen]) 300 mg PO BID [facility] Stop: 07/23/18 08:59 Miscellaneous (Dolutegravir Sodium [Tivicay]) 50 mg PO DAILY [facility] Stop: 07/23/18 08:59 Miscellaneous (Lamivudine [Epivir]) 300 mg PO DAILY [facility] Stop: 07/23/18 08:59 Ondansetron HCl (Zofran Odt) 4 mg PO Q4HR PRN PRN Reason: NAUSEA/VOMITING Stop: 07/22/18 22:59 Sevelamer Carbonate (Renvela) 2,400 mg PO TIDWM [facility] Stop: 07/23/18 07:59 Last Admin: 05/24/18 08:39 Dose: 2,400 mg Thiamine HCl (Vitamin B1) 100 mg PO DAILY [facility] Stop: 07/23/18 08:59 Last Admin: 05/24/18 08:40 Dose: 100 mg Vitamin B Complex/Vit C/Folic Acid (Vitamin B Complex W/Vitamin C) 1 tab PO DAILY [facility] Stop: 07/23/18 08:59 Last Admin: 05/24/18 08:38 Dose: 1 tab General: No acute distress HEENT: Atraumatic, PERRLA, Mucous membr. moist/pink Neck: Supple, +2 carotid pulse wo bruit Cardiovascular: Regular rate, Normal S1, Normal S2 Lungs: Clear to auscultation Abdomen: Bowel sounds, Soft Extremities: no Edema Neurological: Sensation intact Skin: no Rash Psych/Mental Status: Mood NL - Procedures Procedures: Procedures Procedure Code Date PERFORMANCE OF URINARY FILTRATION, <6 HRS/DAY [id number] 02/20/18 Assessment/Plan - Assessment Assessment: ESRD on HD Gen weakness HIV Ess Htn w/ CKD Met Enceph CAD Anemia of CD Fnc Quadriplegia - Plan Plan: Current Medications Heparin Sodium (Porcine) (Heparin) 2,000 units HD UD [facility] Stop: 05/24/18 00:00 Lab - Result Diagrams 05/23/18 05:15 05/23/18 05:15 schedule for HD today f/u electrolytes Nutritional Asmnt/Malnutr-PDOC - Dietary Evaluation Malnutrition Findings (Please click <Entered> for more info): Nutritional Asmnt/Malnutrition Start: 05/23/18 17: 03 Text: Status: Complete Freq: Protocol: Document 05/23/18 17:03 CORIE (Rec: 05/23/18 17:12 CORIE DENISEFN) Nutritional Asmnt/Malnutrition Patient General Information Nutritional Screening High Risk Consult Diagnosis generalized weakness, hyperkalemia ESRD Pertinent Medical Hx/Surgical Hx HTN, ESRD, HIV Subjective Information Pt seen eating lunch in bed at time of visit, not answering RD questions. Per EMR, PO intake 50-100%. Consult received for 50-100%. Pt is on dialysis. Per EMR. pt consumed 50% of breakfast today. Current Diet Order/ Nutrition Support pureed, nectar, low patassium, no dairy Pertinent Medications heparin Pertinent Labs 05/23 BUN 29, Cr 8.2, Alb 3.7 Nutritional Hx/Data Height 1.7 m Height (Calculated Centimeters) 170.2 Current Weight (lbs) 51.256 kg Weight (Calculated Kilograms) 51.3 Weight (Calculated Grams) 57698.9 [place] Body Weight 148 Body Mass Index (BMI) 17.6 Weight Status Underweight GI Symptoms GI Symptoms None Last BM not indicated Difficult in: None Skin Integrity/Comment: intact Current %PO Fair (50-74%) Estimated Nutritional Goals BEE in Kcals: Using Current wt Calories/Kcals/Kg 30-35 Kcals Calculated 1797-2994 Protein: Using Current wt Protein g/k.2-1.4 Protein Calculated 61-71 Fluid: ml fluid restriction 1500ml per MD Nutritional Problem 2. Problem Problem increased nutrition needs ( calorie and protein) Etiology increased metabolic demand Signs/Symptoms: pt on dialysis, underweight and hx of HIV 1. Problem Problem altered nutrition related labs Etiology hx of ESRD Signs/Symptoms: BUN 29, Cr 8.2 Intervention/Recommendation Comments 1. Continue with current diet as ordered. Encourage oral intake. Nurse to assist pt with meals as needed. 2. Monitor PO intake, wt, labs and skin integrity 3. F/U as high risk in 2-3 day ,s 05/25-05/26 Expected Outcomes/Goals Expected Outcomes/Goals 1. PO intake to meet at least 75% of nutritional needs. 2. Wt stability, skin to remain intact, labs to approach WNL.
--- NOTE | 2018-05-24 23:32 | Internal Medicine Prog Note ---
Internal Medicine Subjective - Subjective Service Date: 05/24/18 Patient seen and examined:: without staff Patient is:: awake, interactive Per staff patient has:: no adverse event Internal Medicine Objective - Results Result Diagrams: 05/23/18 05:15 05/23/18 05:15 Recent Labs: Laboratory Last Values WBC 4.3 Th/cmm (4.8-10.8) L 05/23/18 05:15 RBC 2.96 Mil/cmm (4.30-5.70) L 05/23/18 05:15 Hgb 9.7 gm/dL (12-16) L 05/23/18 05:15 Hct 28.5 % (41.0-60) L 05/23/18 05:15 MCV 96.5 fl (80-99) 05/23/18 05:15 MCH 32.7 pg (26.0-30.0) H 05/23/18 05:15 MCHC Differential 33.9 pg (28.0-36.0) 05/23/18 05:15 RDW 16.0 % (11.5-20.0) 05/23/18 05:15 Plt Count 178 Th/cmm (150-400) 05/23/18 05:15 MPV 7.0 fl 05/23/18 05:15 Neutrophils % 63.7 % (40.0-80.0) 05/23/18 05:15 Lymphocytes % 19.7 % (20.0-50.0) L 05/23/18 05:15 Monocytes % 11.9 % (2.0-10.0) H 05/23/18 05:15 Eosinophils % 3.9 % (0.0-5.0) 05/23/18 05:15 Basophils % 0.8 % (0.0-2.0) 05/23/18 05:15 Sodium 138 mEq/L (136-145) 05/23/18 05:15 Potassium 4.2 mEq/L (3.5-5.1) 05/23/18 05:15 Chloride 103 mEq/L (98-107) 05/23/18 05:15 Carbon Dioxide 24.6 mEq/L (21.0-31.0) 05/23/18 05:15 Anion Gap 14.6 (7.0-16.0) 05/23/18 05:15 BUN 29 mg/dL (7-25) H 05/23/18 05:15 Creatinine 8.2 mg/dL (0.7-1.3) H* 05/23/18 05:15 Est GFR ( Amer) 8.7 ml/min (>90) 05/23/18 05:15 Est GFR (Non-Af Amer) 7.2 ml/min 05/23/18 05:15 BUN/Creatinine Ratio 3.5 05/23/18 05:15 Glucose 80 mg/dL (70-105) 05/23/18 05:15 Calcium 9.3 mg/dL (8.6-10.3) 05/23/18 05:15 Total Bilirubin 0.5 mg/dL (0.3-1.0) 05/23/18 05:15 AST 11 U/L (13-39) L 05/23/18 05:15 ALT 6 U/L (7-52) L 05/23/18 05:15 Alkaline Phosphatase 80 U/L (34-104) 05/23/18 05:15 Troponin I 0.04 ng/mL (0.01-0.05) 05/22/18 00:10 Total Protein 6.9 gm/dL (6.0-8.3) 05/23/18 05:15 Albumin 3.7 gm/dL (4.2-5.5) L 05/23/18 05:15 Globulin 3.2 gm/dL 05/23/18 05:15 Albumin/Globulin Ratio 1.2 (1.0-1.8) 05/23/18 05:15 - Physical Exam Vitals and I&O: Vital Signs Temp 98.5 F 05/24/18 20:00 Pulse 75 05/24/18 20:18 Resp 18 05/24/18 20:00 BP 117/72 05/24/18 20:18 Pulse Ox 93 05/24/18 20:00 Intake & Output 05/24/18 05/24/18 05/25/18 06:59 18:59 06:59 Intake Total 100 100 Output Total 0 2000 Balance 100 -1900 Weight (lbs) 51.71 kg 51.71 kg Intake: Oral 100 100 Output: Urine 0 0 Hemodialysis 1999 Other: # Voids 0 0 # Bowel Movements 1 Weight Source Bedscale Bedscale Active Medications: Current Medications Acetaminophen (Tylenol) 650 mg PO Q6HR PRN PRN Reason: Pain or Fever >101 Stop: 07/22/18 22:17 Amlodipine Besylate (Norvasc) 10 mg PO DAILY [facility] Stop: 07/23/18 08:59 Last Admin: 05/24/18 08:39 Dose: 10 mg Aspirin (Ecotrin) 81 mg PO DAILY [facility] Stop: 07/23/18 08:59 Last Admin: 05/24/18 08:39 Dose: 81 mg Carvedilol (Coreg) 25 mg PO BID [facility] Stop: 07/23/18 08:59 Last Admin: 05/24/18 16:23 Dose: Not Given Cinacalcet (Sensipar) 30 mg PO DAILY [facility] Stop: 07/23/18 08:59 Last Admin: 05/24/18 08:40 Dose: 30 mg Cyanocobalamin (Vitamin B12) 1,000 mcg PO DAILY [facility] Stop: 07/23/18 08:59 Last Admin: 05/24/18 08:40 Dose: 1,000 mcg Docusate Sodium (Colace) 100 mg PO BID [facility] Stop: 07/23/18 08:59 Last Admin: 05/24/18 16:24 Dose: 100 mg Folic Acid (Folate) 1 mg PO DAILY [facility] Stop: 07/23/18 08:59 Last Admin: 05/24/18 08:40 Dose: 1 mg Lactulose (Cephulac) 20 gm PO BID [facility] Stop: 07/23/18 08:59 Last Admin: 05/24/18 16:23 Dose: 20 gm Lisinopril (Zestril) 5 mg PO HS [facility] Stop: 07/23/18 20:59 Last Admin: 05/24/18 20:18 Dose: 5 mg Miscellaneous (Abacavir Sulfate [Ziagen]) 300 mg PO BID [facility] Stop: 07/23/18 08:59 Miscellaneous (Dolutegravir Sodium [Tivicay]) 50 mg PO DAILY [facility] Stop: 07/23/18 08:59 Miscellaneous (Lamivudine [Epivir]) 300 mg PO DAILY [facility] Stop: 07/23/18 08:59 Ondansetron HCl (Zofran Odt) 4 mg PO Q4HR PRN PRN Reason: NAUSEA/VOMITING Stop: 07/22/18 22:59 Sevelamer Carbonate (Renvela) 2,400 mg PO TIDWM [facility] Stop: 07/23/18 07:59 Last Admin: 05/24/18 16:23 Dose: 2,400 mg Thiamine HCl (Vitamin B1) 100 mg PO DAILY [facility] Stop: 07/23/18 08:59 Last Admin: 05/24/18 08:40 Dose: 100 mg Vitamin B Complex/Vit C/Folic Acid (Vitamin B Complex W/Vitamin C) 1 tab PO DAILY [facility] Stop: 07/23/18 08:59 Last Admin: 05/24/18 08:38 Dose: 1 tab General: weak, lethargic, thin HEENT: NC/AT, PERRLA, EOMI, anicteric sclerae, throat clear Neck: Supple, No JVD, No thyromegaly Lungs: CTAB, congested Cardiovascular: RRR, Normal S1, Normal S2 Abdomen: soft, non-tender, non-distended, positive bowel sound Extremities: clear, edema - Procedures Procedures: Procedures Procedure Code Date PERFORMANCE OF URINARY FILTRATION, <6 HRS/DAY [id number] 02/20/18 Internal Medicine Assmt/Plan - Assessment Assessment: ESRD: HD Hyperkalemia: corrected. Weakness: multifactorial. HIV: continue meds. HTN: observe and may need to adjust BP meds. ALOC: on and off; observe. Nutritional Asmnt/Malnutr-PDOC - Dietary Evaluation Malnutrition Findings (Please click <Entered> for more info): Nutritional Asmnt/Malnutrition Start: 05/23/18 17: 03 Text: Status: Complete Freq: Protocol: Document 05/23/18 17:03 CHAVEZ (Rec: 05/23/18 17:12 OMAR [email or web address]) Nutritional Asmnt/Malnutrition Patient General Information Nutritional Screening High Risk Consult Diagnosis generalized weakness, hyperkalemia ESRD Pertinent Medical Hx/Surgical Hx HTN, ESRD, HIV Subjective Information Pt seen eating lunch in bed at time of visit, not answering RD questions. Per EMR, PO intake 50-100%. Consult received for 50-100%. Pt is on dialysis. Per EMR. pt consumed 50% of breakfast today. Current Diet Order/ Nutrition Support pureed, nectar, low patassium, no dairy Pertinent Medications heparin Pertinent Labs 05/23 BUN 29, Cr 8.2, Alb 3.7 Nutritional Hx/Data Height 1.7 m Height (Calculated Centimeters) 170.2 Current Weight (lbs) 51.256 kg Weight (Calculated Kilograms) 51.3 Weight (Calculated Grams) 02378.9 [place] Body Weight 148 Body Mass Index (BMI) 17.6 Weight Status Underweight GI Symptoms GI Symptoms None Last BM not indicated Difficult in: None Skin Integrity/Comment: intact Current %PO Fair (50-74%) Estimated Nutritional Goals BEE in Kcals: Using Current wt Calories/Kcals/Kg 30-35 Kcals Calculated 9646-3205 Protein: Using Current wt Protein g/k.2-1.4 Protein Calculated 61-71 Fluid: ml fluid restriction 1500ml per MD Nutritional Problem 2. Problem Problem increased nutrition needs ( calorie and protein) Etiology increased metabolic demand Signs/Symptoms: pt on dialysis, underweight and hx of HIV 1. Problem Problem altered nutrition related labs Etiology hx of ESRD Signs/Symptoms: BUN 29, Cr 8.2 Intervention/Recommendation Comments 1. Continue with current diet as ordered. Encourage oral intake. Nurse to assist pt with meals as needed. 2. Monitor PO intake, wt, labs and skin integrity 3. F/U as high risk in 2-3 day ,s 05/25-05/26 Expected Outcomes/Goals Expected Outcomes/Goals 1. PO intake to meet at least 75% of nutritional needs. 2. Wt stability, skin to remain intact, labs to approach WNL.
[2018-05-25] MEDS: Vitamin B Complex w/Vitamin C Tab PO SCH (08:42)
[2018-05-25] MEDS: Lactulose 10 Gm/15 mL 30mL UDC PO SCH ×2 (08:42→16:14)
--- NOTE | 2018-05-25 12:57 | General Progress Note ---
Subjective - Review of Systems Service Date: 05/25/18 Subjective: eyes open, nonverbal Objective - Results Result Diagrams: 05/23/18 05:15 05/23/18 05:15 Recent Labs: Laboratory Last Values WBC 4.3 Th/cmm (4.8-10.8) L 05/23/18 05:15 RBC 2.96 Mil/cmm (4.30-5.70) L 05/23/18 05:15 Hgb 9.7 gm/dL (12-16) L 05/23/18 05:15 Hct 28.5 % (41.0-60) L 05/23/18 05:15 MCV 96.5 fl (80-99) 05/23/18 05:15 MCH 32.7 pg (26.0-30.0) H 05/23/18 05:15 MCHC Differential 33.9 pg (28.0-36.0) 05/23/18 05:15 RDW 16.0 % (11.5-20.0) 05/23/18 05:15 Plt Count 178 Th/cmm (150-400) 05/23/18 05:15 MPV 7.0 fl 05/23/18 05:15 Neutrophils % 63.7 % (40.0-80.0) 05/23/18 05:15 Lymphocytes % 19.7 % (20.0-50.0) L 05/23/18 05:15 Monocytes % 11.9 % (2.0-10.0) H 05/23/18 05:15 Eosinophils % 3.9 % (0.0-5.0) 05/23/18 05:15 Basophils % 0.8 % (0.0-2.0) 05/23/18 05:15 Sodium 138 mEq/L (136-145) 05/23/18 05:15 Potassium 4.2 mEq/L (3.5-5.1) 05/23/18 05:15 Chloride 103 mEq/L (98-107) 05/23/18 05:15 Carbon Dioxide 24.6 mEq/L (21.0-31.0) 05/23/18 05:15 Anion Gap 14.6 (7.0-16.0) 05/23/18 05:15 BUN 29 mg/dL (7-25) H 05/23/18 05:15 Creatinine 8.2 mg/dL (0.7-1.3) H* 05/23/18 05:15 Est GFR ( Amer) 8.7 ml/min (>90) 05/23/18 05:15 Est GFR (Non-Af Amer) 7.2 ml/min 05/23/18 05:15 BUN/Creatinine Ratio 3.5 05/23/18 05:15 Glucose 80 mg/dL (70-105) 05/23/18 05:15 Calcium 9.3 mg/dL (8.6-10.3) 05/23/18 05:15 Total Bilirubin 0.5 mg/dL (0.3-1.0) 05/23/18 05:15 AST 11 U/L (13-39) L 05/23/18 05:15 ALT 6 U/L (7-52) L 05/23/18 05:15 Alkaline Phosphatase 80 U/L (34-104) 05/23/18 05:15 Troponin I 0.04 ng/mL (0.01-0.05) 05/22/18 00:10 Total Protein 6.9 gm/dL (6.0-8.3) 05/23/18 05:15 Albumin 3.7 gm/dL (4.2-5.5) L 05/23/18 05:15 Globulin 3.2 gm/dL 05/23/18 05:15 Albumin/Globulin Ratio 1.2 (1.0-1.8) 05/23/18 05:15 - Physical Exam Vitals and I&O: Vital Signs Temp 96.8 F 05/25/18 07:50 Pulse 101 05/25/18 08:43 Resp 18 05/25/18 08:00 BP 120/85 05/25/18 08:43 Pulse Ox 97 05/25/18 07:50 Intake & Output 05/24/18 05/25/18 05/25/18 18:59 06:59 18:59 Intake Total 100 Output Total 1999 Balance -1900 Weight (lbs) 51.71 kg 50.938 kg Intake: Oral 100 Output: Urine 0 Hemodialysis 1999 Other: # Voids 0 1 # Bowel Movements 1 0 Stool Characteristics Soft Weight Source Bedscale Bedscale Active Medications: Current Medications Acetaminophen (Tylenol) 650 mg PO Q6HR PRN PRN Reason: Pain or Fever >101 Stop: 07/22/18 22:17 Amlodipine Besylate (Norvasc) 10 mg PO DAILY [facility] Stop: 07/23/18 08:59 Last Admin: 05/25/18 08:43 Dose: 10 mg Aspirin (Ecotrin) 81 mg PO DAILY [facility] Stop: 07/23/18 08:59 Last Admin: 05/25/18 08:43 Dose: 81 mg Carvedilol (Coreg) 25 mg PO BID [facility] Stop: 07/23/18 08:59 Last Admin: 05/25/18 08:43 Dose: 25 mg Cinacalcet (Sensipar) 30 mg PO DAILY [facility] Stop: 07/23/18 08:59 Last Admin: 05/25/18 08:42 Dose: 30 mg Cyanocobalamin (Vitamin B12) 1,000 mcg PO DAILY [facility] Stop: 07/23/18 08:59 Last Admin: 05/25/18 08:43 Dose: 1,000 mcg Docusate Sodium (Colace) 100 mg PO BID [facility] Stop: 07/23/18 08:59 Last Admin: 05/25/18 08:43 Dose: 100 mg Folic Acid (Folate) 1 mg PO DAILY [facility] Stop: 07/23/18 08:59 Last Admin: 05/25/18 08:43 Dose: 1 mg Lactulose (Cephulac) 20 gm PO BID [facility] Stop: 07/23/18 08:59 Last Admin: 05/25/18 08:42 Dose: 20 gm Lisinopril (Zestril) 5 mg PO HS [facility] Stop: 07/23/18 20:59 Last Admin: 05/24/18 20:18 Dose: 5 mg Miscellaneous (Abacavir Sulfate [Ziagen]) 300 mg PO BID [facility] Stop: 07/23/18 08:59 Miscellaneous (Dolutegravir Sodium [Tivicay]) 50 mg PO DAILY [facility] Stop: 07/23/18 08:59 Miscellaneous (Lamivudine [Epivir]) 300 mg PO DAILY [facility] Stop: 07/23/18 08:59 Ondansetron HCl (Zofran Odt) 4 mg PO Q4HR PRN PRN Reason: NAUSEA/VOMITING Stop: 07/22/18 22:59 Sevelamer Carbonate (Renvela) 2,400 mg PO TIDWM [facility] Stop: 07/23/18 07:59 Last Admin: 05/25/18 12:19 Dose: 2,400 mg Thiamine HCl (Vitamin B1) 100 mg PO DAILY [facility] Stop: 07/23/18 08:59 Last Admin: 05/25/18 08:42 Dose: 100 mg Vitamin B Complex/Vit C/Folic Acid (Vitamin B Complex W/Vitamin C) 1 tab PO DAILY [facility] Stop: 07/23/18 08:59 Last Admin: 05/25/18 08:42 Dose: 1 tab General: No acute distress HEENT: Atraumatic, PERRLA, Mucous membr. moist/pink Neck: Supple, +2 carotid pulse wo bruit Cardiovascular: Regular rate, Normal S1, Normal S2 Lungs: Clear to auscultation Abdomen: Bowel sounds, Soft Extremities: no Edema Neurological: Sensation intact Skin: no Rash Psych/Mental Status: Mood NL - Procedures Procedures: Procedures Procedure Code Date PERFORMANCE OF URINARY FILTRATION, <6 HRS/DAY [id number] 02/20/18 Assessment/Plan - Assessment Assessment: ESRD on HD Gen weakness HIV Ess Htn w/ CKD Met Enceph CAD Anemia of CD Fnc Quadriplegia - Plan Plan: Current Medications Heparin Sodium (Porcine) (Heparin) 2,000 units HD UD [facility] Stop: 05/24/18 00:00 Lab - Result Diagrams 05/23/18 05:15 05/23/18 05:15 pt. dialyzed yesterday & tolerated it well encourage po intake Nutritional Asmnt/Malnutr-PDOC - Dietary Evaluation Malnutrition Findings (Please click <Entered> for more info): Nutritional Asmnt/Malnutrition Start: 05/23/18 17: 03 Text: Status: Complete Freq: Protocol: Document 05/23/18 17:03 LCOMARG (Rec: 05/23/18 17:12 [email or web address]) Nutritional Asmnt/Malnutrition Patient General Information Nutritional Screening High Risk Consult Diagnosis generalized weakness, hyperkalemia ESRD Pertinent Medical Hx/Surgical Hx HTN, ESRD, HIV Subjective Information Pt seen eating lunch in bed at time of visit, not answering RD questions. Per EMR, PO intake 50-100%. Consult received for 50-100%. Pt is on dialysis. Per EMR. pt consumed 50% of breakfast today. Current Diet Order/ Nutrition Support pureed, nectar, low patassium, no dairy Pertinent Medications heparin Pertinent Labs 05/23 BUN 29, Cr 8.2, Alb 3.7 Nutritional Hx/Data Height 1.7 m Height (Calculated Centimeters) 170.2 Current Weight (lbs) 51.256 kg Weight (Calculated Kilograms) 51.3 Weight (Calculated Grams) 09483.9 [place] Body Weight 148 Body Mass Index (BMI) 17.6 Weight Status Underweight GI Symptoms GI Symptoms None Last BM not indicated Difficult in: None Skin Integrity/Comment: intact Current %PO Fair (50-74%) Estimated Nutritional Goals BEE in Kcals: Using Current wt Calories/Kcals/Kg 30-35 Kcals Calculated 2869-2375 Protein: Using Current wt Protein g/k.2-1.4 Protein Calculated 61-71 Fluid: ml fluid restriction 1500ml per MD Nutritional Problem 2. Problem Problem increased nutrition needs ( calorie and protein) Etiology increased metabolic demand Signs/Symptoms: pt on dialysis, underweight and hx of HIV 1. Problem Problem altered nutrition related labs Etiology hx of ESRD Signs/Symptoms: BUN 29, Cr 8.2 Intervention/Recommendation Comments 1. Continue with current diet as ordered. Encourage oral intake. Nurse to assist pt with meals as needed. 2. Monitor PO intake, wt, labs and skin integrity 3. F/U as high risk in 2-3 day ,s 05/25-05/26 Expected Outcomes/Goals Expected Outcomes/Goals 1. PO intake to meet at least 75% of nutritional needs. 2. Wt stability, skin to remain intact, labs to approach WNL.
--- NOTE | 2018-05-25 23:42 | Internal Medicine Prog Note ---
Internal Medicine Subjective - Subjective Service Date: 05/25/18 Patient seen and examined:: without staff Patient is:: awake, interactive Per staff patient has:: no adverse event Internal Medicine Objective - Results Result Diagrams: 05/23/18 05:15 05/23/18 05:15 Recent Labs: Laboratory Last Values WBC 4.3 Th/cmm (4.8-10.8) L 05/23/18 05:15 RBC 2.96 Mil/cmm (4.30-5.70) L 05/23/18 05:15 Hgb 9.7 gm/dL (12-16) L 05/23/18 05:15 Hct 28.5 % (41.0-60) L 05/23/18 05:15 MCV 96.5 fl (80-99) 05/23/18 05:15 MCH 32.7 pg (26.0-30.0) H 05/23/18 05:15 MCHC Differential 33.9 pg (28.0-36.0) 05/23/18 05:15 RDW 16.0 % (11.5-20.0) 05/23/18 05:15 Plt Count 178 Th/cmm (150-400) 05/23/18 05:15 MPV 7.0 fl 05/23/18 05:15 Neutrophils % 63.7 % (40.0-80.0) 05/23/18 05:15 Lymphocytes % 19.7 % (20.0-50.0) L 05/23/18 05:15 Monocytes % 11.9 % (2.0-10.0) H 05/23/18 05:15 Eosinophils % 3.9 % (0.0-5.0) 05/23/18 05:15 Basophils % 0.8 % (0.0-2.0) 05/23/18 05:15 Sodium 138 mEq/L (136-145) 05/23/18 05:15 Potassium 4.2 mEq/L (3.5-5.1) 05/23/18 05:15 Chloride 103 mEq/L (98-107) 05/23/18 05:15 Carbon Dioxide 24.6 mEq/L (21.0-31.0) 05/23/18 05:15 Anion Gap 14.6 (7.0-16.0) 05/23/18 05:15 BUN 29 mg/dL (7-25) H 05/23/18 05:15 Creatinine 8.2 mg/dL (0.7-1.3) H* 05/23/18 05:15 Est GFR ( Amer) 8.7 ml/min (>90) 05/23/18 05:15 Est GFR (Non-Af Amer) 7.2 ml/min 05/23/18 05:15 BUN/Creatinine Ratio 3.5 05/23/18 05:15 Glucose 80 mg/dL (70-105) 05/23/18 05:15 Calcium 9.3 mg/dL (8.6-10.3) 05/23/18 05:15 Total Bilirubin 0.5 mg/dL (0.3-1.0) 05/23/18 05:15 AST 11 U/L (13-39) L 05/23/18 05:15 ALT 6 U/L (7-52) L 05/23/18 05:15 Alkaline Phosphatase 80 U/L (34-104) 05/23/18 05:15 Troponin I 0.04 ng/mL (0.01-0.05) 05/22/18 00:10 Total Protein 6.9 gm/dL (6.0-8.3) 05/23/18 05:15 Albumin 3.7 gm/dL (4.2-5.5) L 05/23/18 05:15 Globulin 3.2 gm/dL 05/23/18 05:15 Albumin/Globulin Ratio 1.2 (1.0-1.8) 05/23/18 05:15 - Physical Exam Vitals and I&O: Vital Signs Temp 97.9 F 05/25/18 19:00 Pulse 84 05/25/18 21:05 Resp 18 05/25/18 20:00 BP 130/70 05/25/18 21:05 Pulse Ox 97 05/25/18 19:00 Intake & Output 05/25/18 05/25/18 05/26/18 06:59 18:59 06:59 Intake Total 75 Output Total 0 Balance 75 Weight (lbs) 50.938 kg 50.802 kg Intake: Oral 75 Output: Urine 0 Other: # Voids 1 0 # Bowel Movements 0 Stool Characteristics Soft Weight Source Bedscale Bedscale Active Medications: Current Medications Acetaminophen (Tylenol) 650 mg PO Q6HR PRN PRN Reason: Pain or Fever >101 Stop: 07/22/18 22:17 Amlodipine Besylate (Norvasc) 10 mg PO DAILY [facility] Stop: 07/23/18 08:59 Last Admin: 05/25/18 08:43 Dose: 10 mg Aspirin (Ecotrin) 81 mg PO DAILY [facility] Stop: 07/23/18 08:59 Last Admin: 05/25/18 08:43 Dose: 81 mg Carvedilol (Coreg) 25 mg PO BID [facility] Stop: 07/23/18 08:59 Last Admin: 05/25/18 16:13 Dose: 25 mg Cinacalcet (Sensipar) 30 mg PO DAILY [facility] Stop: 07/23/18 08:59 Last Admin: 05/25/18 08:42 Dose: 30 mg Cyanocobalamin (Vitamin B12) 1,000 mcg PO DAILY [facility] Stop: 07/23/18 08:59 Last Admin: 05/25/18 08:43 Dose: 1,000 mcg Docusate Sodium (Colace) 100 mg PO BID [facility] Stop: 07/23/18 08:59 Last Admin: 05/25/18 16:13 Dose: 100 mg Folic Acid (Folate) 1 mg PO DAILY [facility] Stop: 07/23/18 08:59 Last Admin: 05/25/18 08:43 Dose: 1 mg Lactulose (Cephulac) 20 gm PO BID [facility] Stop: 07/23/18 08:59 Last Admin: 05/25/18 16:14 Dose: 20 gm Lisinopril (Zestril) 5 mg PO HS [facility] Stop: 07/23/18 20:59 Last Admin: 05/25/18 21:05 Dose: 5 mg Miscellaneous (Abacavir Sulfate [Ziagen]) 300 mg PO BID [facility] Stop: 07/23/18 08:59 Miscellaneous (Dolutegravir Sodium [Tivicay]) 50 mg PO DAILY [facility] Stop: 07/23/18 08:59 Miscellaneous (Lamivudine [Epivir]) 300 mg PO DAILY [facility] Stop: 07/23/18 08:59 Ondansetron HCl (Zofran Odt) 4 mg PO Q4HR PRN PRN Reason: NAUSEA/VOMITING Stop: 07/22/18 22:59 Sevelamer Carbonate (Renvela) 2,400 mg PO TIDWM [facility] Stop: 07/23/18 07:59 Last Admin: 05/25/18 16:14 Dose: 2,400 mg Thiamine HCl (Vitamin B1) 100 mg PO DAILY [facility] Stop: 07/23/18 08:59 Last Admin: 05/25/18 08:42 Dose: 100 mg Vitamin B Complex/Vit C/Folic Acid (Vitamin B Complex W/Vitamin C) 1 tab PO DAILY [facility] Stop: 07/23/18 08:59 Last Admin: 05/25/18 08:42 Dose: 1 tab General: weak, lethargic, thin HEENT: NC/AT, PERRLA, EOMI, anicteric sclerae, throat clear Neck: Supple, No JVD, No thyromegaly Lungs: CTAB, congested Cardiovascular: RRR, Normal S1, Normal S2 Abdomen: soft, non-tender, non-distended, positive bowel sound Extremities: clear, edema - Procedures Procedures: Procedures Procedure Code Date PERFORMANCE OF URINARY FILTRATION, <6 HRS/DAY [id number] 02/20/18 Internal Medicine Assmt/Plan - Assessment Assessment: ALOC: on and off; observe. ESRD: HD Hyperkalemia: corrected. Weakness: multifactorial. HIV: continue meds. HTN: observe and may need to adjust BP meds. Nutritional Asmnt/Malnutr-PDOC - Dietary Evaluation Malnutrition Findings (Please click <Entered> for more info): Nutritional Asmnt/Malnutrition Start: 05/23/18 17: 03 Text: Status: Complete Freq: Protocol: Document 05/23/18 17:03 CORIE (Rec: 05/23/18 17:12 OMAR [email or web address]) Nutritional Asmnt/Malnutrition Patient General Information Nutritional Screening High Risk Consult Diagnosis generalized weakness, hyperkalemia ESRD Pertinent Medical Hx/Surgical Hx HTN, ESRD, HIV Subjective Information Pt seen eating lunch in bed at time of visit, not answering RD questions. Per EMR, PO intake 50-100%. Consult received for 50-100%. Pt is on dialysis. Per EMR. pt consumed 50% of breakfast today. Current Diet Order/ Nutrition Support pureed, nectar, low patassium, no dairy Pertinent Medications heparin Pertinent Labs 05/23 BUN 29, Cr 8.2, Alb 3.7 Nutritional Hx/Data Height 1.7 m Height (Calculated Centimeters) 170.2 Current Weight (lbs) 51.256 kg Weight (Calculated Kilograms) 51.3 Weight (Calculated Grams) 18746.9 [place] Body Weight 148 Body Mass Index (BMI) 17.6 Weight Status Underweight GI Symptoms GI Symptoms None Last BM not indicated Difficult in: None Skin Integrity/Comment: intact Current %PO Fair (50-74%) Estimated Nutritional Goals BEE in Kcals: Using Current wt Calories/Kcals/Kg 30-35 Kcals Calculated 5861-6703 Protein: Using Current wt Protein g/k.2-1.4 Protein Calculated 61-71 Fluid: ml fluid restriction 1500ml per MD Nutritional Problem 2. Problem Problem increased nutrition needs ( calorie and protein) Etiology increased metabolic demand Signs/Symptoms: pt on dialysis, underweight and hx of HIV 1. Problem Problem altered nutrition related labs Etiology hx of ESRD Signs/Symptoms: BUN 29, Cr 8.2 Intervention/Recommendation Comments 1. Continue with current diet as ordered. Encourage oral intake. Nurse to assist pt with meals as needed. 2. Monitor PO intake, wt, labs and skin integrity 3. F/U as high risk in 2-3 day ,s 05/25-05/26 Expected Outcomes/Goals Expected Outcomes/Goals 1. PO intake to meet at least 75% of nutritional needs. 2. Wt stability, skin to remain intact, labs to approach WNL.
[2018-05-26 04:52] LABS: % BASOPHILS 0.4 % (0.0-2.0); % EOSINOPHILS 2.7 % (0.0-5.0); % LYMPHOCYTES 19.7 % (20.0-50.0); % MONOCYTES 12.9 % (2.0-10.0); % NEUTROPHILS 64.3 % (40.0-80.0); EOSINOPHILE ABSOLUTE 0.1 Th/cmm (0.1-0.4); HEMATOCRIT 29.9 % (41.0-60); HEMOGLOBIN 10.3 gm/dL (12-16); LYMPHOCYTE ABSOLUTE 0.9 Th/cmm (1.5-3.0); MEAN CELL VOLUME 96.2 fl (80-99); MEAN CORPUSCULAR HEMOGLOBIN 33.2 pg (26.0-30.0); MEAN CORPUSCULAR HGB CONC 34.4 pg (28.0-36.0); MEAN PLATELET VOLUME 7.7 fl; MONOCYTE ABSOLUTE 0.6 Th/cmm (0.3-1.0); NEUTROPHILE ABSOLUTE 3.2 Th/cmm (1.8-8.0); PLATELET COUNT 131 Th/cmm (150-400); RED BLOOD COUNT 3.11 Mil/cmm (4.30-5.70); RED CELL DISTRIBUTION WIDTH 15.7 % (11.5-20.0); WHITE BLOOD COUNT 4.8 Th/cmm (4.8-10.8)
[2018-05-26 05:05] LABS: ALB/GLOB RATIO 1.2 (1.0-1.8); ALBUMIN 3.8 gm/dL (4.2-5.5); ANION GAP 15.6 (7.0-16.0); BILIRUBIN,TOTAL 0.5 mg/dL (0.3-1.0); CALCIUM SERUM 9.7 mg/dL (8.6-10.3); CARBON DIOXIDE 27.4 mEq/L (21.0-31.0); GFR AFRICAN-AMERICAN 7.5 ml/min (>90); GFR NON AFRICAN-AMERICAN 6.2 ml/min; TOTAL PROTEIN,SERUM 7.1 gm/dL (6.0-8.3)
[2018-05-26 05:20] LABS: CREATININE - SERUM 9.3 mg/dL (0.7-1.3)
--- NOTE | 2018-05-26 08:39 | Internal Medicine Prog Note ---
Internal Medicine Subjective - Subjective Service Date: 05/26/18 Patient seen and examined:: without staff Patient is:: awake, interactive Per staff patient has:: no adverse event Internal Medicine Objective - Results Result Diagrams: 05/26/18 04:35 05/26/18 04:35 Recent Labs: Laboratory Last Values WBC 4.8 Th/cmm (4.8-10.8) 05/26/18 04:35 RBC 3.11 Mil/cmm (4.30-5.70) L 05/26/18 04:35 Hgb 10.3 gm/dL (12-16) L 05/26/18 04:35 Hct 29.9 % (41.0-60) L 05/26/18 04:35 MCV 96.2 fl (80-99) 05/26/18 04:35 MCH 33.2 pg (26.0-30.0) H 05/26/18 04:35 MCHC Differential 34.4 pg (28.0-36.0) 05/26/18 04:35 RDW 15.7 % (11.5-20.0) 05/26/18 04:35 Plt Count 131 Th/cmm (150-400) L 05/26/18 04:35 MPV 7.7 fl 05/26/18 04:35 Neutrophils % 64.3 % (40.0-80.0) 05/26/18 04:35 Lymphocytes % 19.7 % (20.0-50.0) L 05/26/18 04:35 Monocytes % 12.9 % (2.0-10.0) H 05/26/18 04:35 Eosinophils % 2.7 % (0.0-5.0) 05/26/18 04:35 Basophils % 0.4 % (0.0-2.0) 05/26/18 04:35 Sodium 137 mEq/L (136-145) 05/26/18 04:35 Potassium 4.0 mEq/L (3.5-5.1) 05/26/18 04:35 Chloride 98 mEq/L (98-107) 05/26/18 04:35 Carbon Dioxide 27.4 mEq/L (21.0-31.0) 05/26/18 04:35 Anion Gap 15.6 (7.0-16.0) 05/26/18 04:35 BUN 41 mg/dL (7-25) H 05/26/18 04:35 Creatinine 9.3 mg/dL (0.7-1.3) H* 05/26/18 04:35 Est GFR ( Amer) 7.5 ml/min (>90) 05/26/18 04:35 Est GFR (Non-Af Amer) 6.2 ml/min 05/26/18 04:35 BUN/Creatinine Ratio 4.4 05/26/18 04:35 Glucose 83 mg/dL (70-105) 05/26/18 04:35 Calcium 9.7 mg/dL (8.6-10.3) 05/26/18 04:35 Total Bilirubin 0.5 mg/dL (0.3-1.0) 05/26/18 04:35 AST 12 U/L (13-39) L 05/26/18 04:35 ALT 5 U/L (7-52) L 05/26/18 04:35 Alkaline Phosphatase 70 U/L (34-104) 05/26/18 04:35 Troponin I 0.04 ng/mL (0.01-0.05) 05/22/18 00:10 Total Protein 7.1 gm/dL (6.0-8.3) 05/26/18 04:35 Albumin 3.8 gm/dL (4.2-5.5) L 05/26/18 04:35 Globulin 3.3 gm/dL 05/26/18 04:35 Albumin/Globulin Ratio 1.2 (1.0-1.8) 05/26/18 04:35 - Physical Exam Vitals and I&O: Vital Signs Temp 98.7 F 05/26/18 04:00 Pulse 80 05/26/18 04:00 Resp 20 05/26/18 04:00 BP 152/78 05/26/18 04:00 Pulse Ox 94 05/26/18 04:00 Intake & Output 05/25/18 05/26/18 05/26/18 18:59 06:59 18:59 Intake Total 75 Output Total 0 Balance 75 Weight (lbs) 50.802 kg 52.571 kg Intake: Oral 75 Output: Urine 0 Other: # Voids 0 0 # Bowel Movements 0 Stool Characteristics Soft Weight Source Bedscale Bedscale Active Medications: Current Medications Acetaminophen (Tylenol) 650 mg PO Q6HR PRN PRN Reason: Pain or Fever >101 Stop: 07/22/18 22:17 Amlodipine Besylate (Norvasc) 10 mg PO DAILY [facility] Stop: 07/23/18 08:59 Last Admin: 05/25/18 08:43 Dose: 10 mg Aspirin (Ecotrin) 81 mg PO DAILY [facility] Stop: 07/23/18 08:59 Last Admin: 05/25/18 08:43 Dose: 81 mg Carvedilol (Coreg) 25 mg PO BID [facility] Stop: 07/23/18 08:59 Last Admin: 05/25/18 16:13 Dose: 25 mg Cinacalcet (Sensipar) 30 mg PO DAILY [facility] Stop: 07/23/18 08:59 Last Admin: 05/25/18 08:42 Dose: 30 mg Cyanocobalamin (Vitamin B12) 1,000 mcg PO DAILY [facility] Stop: 07/23/18 08:59 Last Admin: 05/25/18 08:43 Dose: 1,000 mcg Docusate Sodium (Colace) 100 mg PO BID [facility] Stop: 07/23/18 08:59 Last Admin: 05/25/18 16:13 Dose: 100 mg Folic Acid (Folate) 1 mg PO DAILY [facility] Stop: 07/23/18 08:59 Last Admin: 05/25/18 08:43 Dose: 1 mg Lactulose (Cephulac) 20 gm PO BID [facility] Stop: 07/23/18 08:59 Last Admin: 05/25/18 16:14 Dose: 20 gm Lisinopril (Zestril) 5 mg PO HS [facility] Stop: 07/23/18 20:59 Last Admin: 05/25/18 21:05 Dose: 5 mg Miscellaneous (Abacavir Sulfate [Ziagen]) 300 mg PO BID [facility] Stop: 07/23/18 08:59 Miscellaneous (Dolutegravir Sodium [Tivicay]) 50 mg PO DAILY [facility] Stop: 07/23/18 08:59 Miscellaneous (Lamivudine [Epivir]) 300 mg PO DAILY [facility] Stop: 07/23/18 08:59 Miscellaneous (Clinical Monitoring) 1 ea MC DAILY PRN PRN Reason: RENAL Stop: 07/25/18 08:28 Ondansetron HCl (Zofran Odt) 4 mg PO Q4HR PRN PRN Reason: NAUSEA/VOMITING Stop: 07/22/18 22:59 Sevelamer Carbonate (Renvela) 2,400 mg PO TIDWM [facility] Stop: 07/23/18 07:59 Last Admin: 05/25/18 16:14 Dose: 2,400 mg Thiamine HCl (Vitamin B1) 100 mg PO DAILY [facility] Stop: 07/23/18 08:59 Last Admin: 05/25/18 08:42 Dose: 100 mg Vitamin B Complex/Vit C/Folic Acid (Vitamin B Complex W/Vitamin C) 1 tab PO DAILY [facility] Stop: 07/23/18 08:59 Last Admin: 05/25/18 08:42 Dose: 1 tab General: weak, lethargic, thin HEENT: NC/AT, PERRLA, EOMI, anicteric sclerae, throat clear Neck: Supple, No JVD, No thyromegaly Lungs: CTAB, congested Cardiovascular: RRR, Normal S1, Normal S2 Abdomen: soft, non-tender, non-distended, positive bowel sound Extremities: clear, edema - Procedures Procedures: Procedures Procedure Code Date PERFORMANCE OF URINARY FILTRATION, <6 HRS/DAY [id number] 02/20/18 Internal Medicine Assmt/Plan - Assessment Assessment: Weakness: multifactorial. Fall prevention education. ALOC: on and off; observe. ESRD: HD Hyperkalemia: corrected. HIV: continue meds. HTN: observe and may need to adjust BP meds. Nutritional Asmnt/Malnutr-PDOC - Dietary Evaluation Malnutrition Findings (Please click <Entered> for more info): Nutritional Asmnt/Malnutrition Start: 05/23/18 17: 03 Text: Status: Complete Freq: Protocol: Document 05/23/18 17:03 OMAR (Rec: 05/23/18 17:12 [facility] [email or web address]) Nutritional Asmnt/Malnutrition Patient General Information Nutritional Screening High Risk Consult Diagnosis generalized weakness, hyperkalemia ESRD Pertinent Medical Hx/Surgical Hx HTN, ESRD, HIV Subjective Information Pt seen eating lunch in bed at time of visit, not answering RD questions. Per EMR, PO intake 50-100%. Consult received for 50-100%. Pt is on dialysis. Per EMR. pt consumed 50% of breakfast today. Current Diet Order/ Nutrition Support pureed, nectar, low patassium, no dairy Pertinent Medications heparin Pertinent Labs 05/23 BUN 29, Cr 8.2, Alb 3.7 Nutritional Hx/Data Height 1.7 m Height (Calculated Centimeters) 170.2 Current Weight (lbs) 51.256 kg Weight (Calculated Kilograms) 51.3 Weight (Calculated Grams) 83899.9 [place] Body Weight 148 Body Mass Index (BMI) 17.6 Weight Status Underweight GI Symptoms GI Symptoms None Last BM not indicated Difficult in: None Skin Integrity/Comment: intact Current %PO Fair (50-74%) Estimated Nutritional Goals BEE in Kcals: Using Current wt Calories/Kcals/Kg 30-35 Kcals Calculated 3041-3961 Protein: Using Current wt Protein g/k.2-1.4 Protein Calculated 61-71 Fluid: ml fluid restriction 1500ml per MD Nutritional Problem 2. Problem Problem increased nutrition needs ( calorie and protein) Etiology increased metabolic demand Signs/Symptoms: pt on dialysis, underweight and hx of HIV 1. Problem Problem altered nutrition related labs Etiology hx of ESRD Signs/Symptoms: BUN 29, Cr 8.2 Intervention/Recommendation Comments 1. Continue with current diet as ordered. Encourage oral intake. Nurse to assist pt with meals as needed. 2. Monitor PO intake, wt, labs and skin integrity 3. F/U as high risk in 2-3 day ,s 05/25-05/26 Expected Outcomes/Goals Expected Outcomes/Goals 1. PO intake to meet at least 75% of nutritional needs. 2. Wt stability, skin to remain intact, labs to approach WNL.
[2018-05-26] MEDS: Vitamin B Complex w/Vitamin C Tab PO SCH (10:15)
[2018-05-26] MEDS: Lactulose 10 Gm/15 mL 30mL UDC PO SCH ×2 (10:15→17:36)
--- NOTE | 2018-05-26 13:44 | General Progress Note ---
Subjective - Review of Systems Service Date: 05/26/18 Subjective: eyes open, nonverbal Objective - Results Result Diagrams: 05/26/18 04:35 05/26/18 04:35 Recent Labs: Laboratory Last Values WBC 4.8 Th/cmm (4.8-10.8) 05/26/18 04:35 RBC 3.11 Mil/cmm (4.30-5.70) L 05/26/18 04:35 Hgb 10.3 gm/dL (12-16) L 05/26/18 04:35 Hct 29.9 % (41.0-60) L 05/26/18 04:35 MCV 96.2 fl (80-99) 05/26/18 04:35 MCH 33.2 pg (26.0-30.0) H 05/26/18 04:35 MCHC Differential 34.4 pg (28.0-36.0) 05/26/18 04:35 RDW 15.7 % (11.5-20.0) 05/26/18 04:35 Plt Count 131 Th/cmm (150-400) L 05/26/18 04:35 MPV 7.7 fl 05/26/18 04:35 Neutrophils % 64.3 % (40.0-80.0) 05/26/18 04:35 Lymphocytes % 19.7 % (20.0-50.0) L 05/26/18 04:35 Monocytes % 12.9 % (2.0-10.0) H 05/26/18 04:35 Eosinophils % 2.7 % (0.0-5.0) 05/26/18 04:35 Basophils % 0.4 % (0.0-2.0) 05/26/18 04:35 Sodium 137 mEq/L (136-145) 05/26/18 04:35 Potassium 4.0 mEq/L (3.5-5.1) 05/26/18 04:35 Chloride 98 mEq/L (98-107) 05/26/18 04:35 Carbon Dioxide 27.4 mEq/L (21.0-31.0) 05/26/18 04:35 Anion Gap 15.6 (7.0-16.0) 05/26/18 04:35 BUN 41 mg/dL (7-25) H 05/26/18 04:35 Creatinine 9.3 mg/dL (0.7-1.3) H* 05/26/18 04:35 Est GFR ( Amer) 7.5 ml/min (>90) 05/26/18 04:35 Est GFR (Non-Af Amer) 6.2 ml/min 05/26/18 04:35 BUN/Creatinine Ratio 4.4 05/26/18 04:35 Glucose 83 mg/dL (70-105) 05/26/18 04:35 Calcium 9.7 mg/dL (8.6-10.3) 05/26/18 04:35 Total Bilirubin 0.5 mg/dL (0.3-1.0) 05/26/18 04:35 AST 12 U/L (13-39) L 05/26/18 04:35 ALT 5 U/L (7-52) L 05/26/18 04:35 Alkaline Phosphatase 70 U/L (34-104) 05/26/18 04:35 Troponin I 0.04 ng/mL (0.01-0.05) 05/22/18 00:10 Total Protein 7.1 gm/dL (6.0-8.3) 05/26/18 04:35 Albumin 3.8 gm/dL (4.2-5.5) L 05/26/18 04:35 Globulin 3.3 gm/dL 05/26/18 04:35 Albumin/Globulin Ratio 1.2 (1.0-1.8) 05/26/18 04:35 - Physical Exam Vitals and I&O: Vital Signs Temp 98.7 F 05/26/18 04:00 Pulse 83 05/26/18 10:16 Resp 16 05/26/18 12:00 BP 161/84 05/26/18 10:16 Pulse Ox 94 05/26/18 04:00 Intake & Output 05/25/18 05/26/18 05/26/18 18:59 06:59 18:59 Intake Total 75 Output Total 0 Balance 75 Weight (lbs) 50.802 kg 52.571 kg Intake: Oral 75 Output: Urine 0 Other: # Voids 0 0 # Bowel Movements 0 Stool Characteristics Soft Weight Source Bedscale Bedscale Active Medications: Current Medications Acetaminophen (Tylenol) 650 mg PO Q6HR PRN PRN Reason: Pain or Fever >101 Stop: 07/22/18 22:17 Amlodipine Besylate (Norvasc) 10 mg PO DAILY [facility] Stop: 07/23/18 08:59 Last Admin: 05/26/18 10:15 Dose: 10 mg Aspirin (Ecotrin) 81 mg PO DAILY [facility] Stop: 07/23/18 08:59 Last Admin: 05/26/18 10:16 Dose: 81 mg Carvedilol (Coreg) 25 mg PO BID [facility] Stop: 07/23/18 08:59 Last Admin: 05/26/18 10:16 Dose: 25 mg Cinacalcet (Sensipar) 30 mg PO DAILY [facility] Stop: 07/23/18 08:59 Last Admin: 05/26/18 10:27 Dose: 30 mg Cyanocobalamin (Vitamin B12) 1,000 mcg PO DAILY [facility] Stop: 07/23/18 08:59 Last Admin: 05/26/18 10:27 Dose: 1,000 mcg Docusate Sodium (Colace) 100 mg PO BID [facility] Stop: 07/23/18 08:59 Last Admin: 05/26/18 10:16 Dose: 100 mg Folic Acid (Folate) 1 mg PO DAILY [facility] Stop: 07/23/18 08:59 Last Admin: 05/26/18 10:27 Dose: 1 mg Lactulose (Cephulac) 20 gm PO BID [facility] Stop: 07/23/18 08:59 Last Admin: 05/26/18 10:15 Dose: 20 gm Lisinopril (Zestril) 5 mg PO HS [facility] Stop: 07/23/18 20:59 Last Admin: 05/25/18 21:05 Dose: 5 mg Miscellaneous (Abacavir Sulfate [Ziagen]) 300 mg PO BID [facility] Stop: 07/23/18 08:59 Miscellaneous (Dolutegravir Sodium [Tivicay]) 50 mg PO DAILY [facility] Stop: 07/23/18 08:59 Miscellaneous (Lamivudine [Epivir]) 300 mg PO DAILY [facility] Stop: 07/23/18 08:59 Miscellaneous (Clinical Monitoring) 1 ea MC DAILY PRN PRN Reason: RENAL Stop: 07/25/18 08:28 Ondansetron HCl (Zofran Odt) 4 mg PO Q4HR PRN PRN Reason: NAUSEA/VOMITING Stop: 07/22/18 22:59 Sevelamer Carbonate (Renvela) 2,400 mg PO TIDWM [facility] Stop: 07/23/18 07:59 Last Admin: 05/26/18 13:03 Dose: Not Given Thiamine HCl (Vitamin B1) 100 mg PO DAILY [facility] Stop: 07/23/18 08:59 Last Admin: 05/26/18 10:15 Dose: 100 mg Vitamin B Complex/Vit C/Folic Acid (Vitamin B Complex W/Vitamin C) 1 tab PO DAILY [facility] Stop: 07/23/18 08:59 Last Admin: 05/26/18 10:15 Dose: 1 tab General: No acute distress HEENT: Atraumatic, PERRLA, Mucous membr. moist/pink Neck: Supple, +2 carotid pulse wo bruit Cardiovascular: Regular rate, Normal S1, Normal S2 Lungs: Clear to auscultation Abdomen: Bowel sounds, Soft Extremities: no Edema Neurological: Sensation intact Skin: no Rash Psych/Mental Status: Mood NL - Procedures Procedures: Procedures Procedure Code Date PERFORMANCE OF URINARY FILTRATION, <6 HRS/DAY [id number] 02/20/18 Assessment/Plan - Assessment Assessment: ESRD on HD Gen weakness HIV Ess Htn w/ CKD Met Enceph CAD Anemia of CD Fnc Quadriplegia - Plan Plan: Current Medications Heparin Sodium (Porcine) (Heparin) 2,000 units HD UD [facility] Stop: 05/24/18 00:00 Lab - Result Diagrams 05/26/18 04:35 05/26/18 04:35 schedule for HD in am encourage po intake Nutritional Asmnt/Malnutr-PDOC - Dietary Evaluation Malnutrition Findings (Please click <Entered> for more info): Nutritional Asmnt/Malnutrition Start: 05/23/18 17: 03 Text: Status: Complete Freq: Protocol: Document 05/23/18 17:03 LCHENG (Rec: 05/23/18 17:12 [facility]COM[facility] [email or web address]) Nutritional Asmnt/Malnutrition Patient General Information Nutritional Screening High Risk Consult Diagnosis generalized weakness, hyperkalemia ESRD Pertinent Medical Hx/Surgical Hx HTN, ESRD, HIV Subjective Information Pt seen eating lunch in bed at time of visit, not answering RD questions. Per EMR, PO intake 50-100%. Consult received for 50-100%. Pt is on dialysis. Per EMR. pt consumed 50% of breakfast today. Current Diet Order/ Nutrition Support pureed, nectar, low patassium, no dairy Pertinent Medications heparin Pertinent Labs 05/23 BUN 29, Cr 8.2, Alb 3.7 Nutritional Hx/Data Height 1.7 m Height (Calculated Centimeters) 170.2 Current Weight (lbs) 51.256 kg Weight (Calculated Kilograms) 51.3 Weight (Calculated Grams) 65092.9 [place] Body Weight 148 Body Mass Index (BMI) 17.6 Weight Status Underweight GI Symptoms GI Symptoms None Last BM not indicated Difficult in: None Skin Integrity/Comment: intact Current %PO Fair (50-74%) Estimated Nutritional Goals BEE in Kcals: Using Current wt Calories/Kcals/Kg 30-35 Kcals Calculated 3333-5461 Protein: Using Current wt Protein g/k.2-1.4 Protein Calculated 61-71 Fluid: ml fluid restriction 1500ml per MD Nutritional Problem 2. Problem Problem increased nutrition needs ( calorie and protein) Etiology increased metabolic demand Signs/Symptoms: pt on dialysis, underweight and hx of HIV 1. Problem Problem altered nutrition related labs Etiology hx of ESRD Signs/Symptoms: BUN 29, Cr 8.2 Intervention/Recommendation Comments 1. Continue with current diet as ordered. Encourage oral intake. Nurse to assist pt with meals as needed. 2. Monitor PO intake, wt, labs and skin integrity 3. F/U as high risk in 2-3 day ,s 05/25-05/26 Expected Outcomes/Goals Expected Outcomes/Goals 1. PO intake to meet at least 75% of nutritional needs. 2. Wt stability, skin to remain intact, labs to approach WNL.
[2018-05-27] MEDS: Lactulose 10 Gm/15 mL 30mL UDC PO SCH ×2 (09:03→17:46)
[2018-05-27] MEDS: Vitamin B Complex w/Vitamin C Tab PO SCH (09:04)
--- NOTE | 2018-05-27 13:26 | General Progress Note ---
Subjective - Review of Systems Service Date: 05/27/18 Subjective: eyes open, nonverbal Objective - Results Result Diagrams: 05/26/18 04:35 05/26/18 04:35 Recent Labs: Laboratory Last Values WBC 4.8 Th/cmm (4.8-10.8) 05/26/18 04:35 RBC 3.11 Mil/cmm (4.30-5.70) L 05/26/18 04:35 Hgb 10.3 gm/dL (12-16) L 05/26/18 04:35 Hct 29.9 % (41.0-60) L 05/26/18 04:35 MCV 96.2 fl (80-99) 05/26/18 04:35 MCH 33.2 pg (26.0-30.0) H 05/26/18 04:35 MCHC Differential 34.4 pg (28.0-36.0) 05/26/18 04:35 RDW 15.7 % (11.5-20.0) 05/26/18 04:35 Plt Count 131 Th/cmm (150-400) L 05/26/18 04:35 MPV 7.7 fl 05/26/18 04:35 Neutrophils % 64.3 % (40.0-80.0) 05/26/18 04:35 Lymphocytes % 19.7 % (20.0-50.0) L 05/26/18 04:35 Monocytes % 12.9 % (2.0-10.0) H 05/26/18 04:35 Eosinophils % 2.7 % (0.0-5.0) 05/26/18 04:35 Basophils % 0.4 % (0.0-2.0) 05/26/18 04:35 Sodium 137 mEq/L (136-145) 05/26/18 04:35 Potassium 4.0 mEq/L (3.5-5.1) 05/26/18 04:35 Chloride 98 mEq/L (98-107) 05/26/18 04:35 Carbon Dioxide 27.4 mEq/L (21.0-31.0) 05/26/18 04:35 Anion Gap 15.6 (7.0-16.0) 05/26/18 04:35 BUN 41 mg/dL (7-25) H 05/26/18 04:35 Creatinine 9.3 mg/dL (0.7-1.3) H* 05/26/18 04:35 Est GFR ( Amer) 7.5 ml/min (>90) 05/26/18 04:35 Est GFR (Non-Af Amer) 6.2 ml/min 05/26/18 04:35 BUN/Creatinine Ratio 4.4 05/26/18 04:35 Glucose 83 mg/dL (70-105) 05/26/18 04:35 Calcium 9.7 mg/dL (8.6-10.3) 05/26/18 04:35 Total Bilirubin 0.5 mg/dL (0.3-1.0) 05/26/18 04:35 AST 12 U/L (13-39) L 05/26/18 04:35 ALT 5 U/L (7-52) L 05/26/18 04:35 Alkaline Phosphatase 70 U/L (34-104) 05/26/18 04:35 Troponin I 0.04 ng/mL (0.01-0.05) 05/22/18 00:10 Total Protein 7.1 gm/dL (6.0-8.3) 05/26/18 04:35 Albumin 3.8 gm/dL (4.2-5.5) L 05/26/18 04:35 Globulin 3.3 gm/dL 05/26/18 04:35 Albumin/Globulin Ratio 1.2 (1.0-1.8) 05/26/18 04:35 - Physical Exam Vitals and I&O: Vital Signs Temp 98.3 F 05/27/18 12:00 Pulse 75 05/27/18 12:00 Resp 18 05/27/18 12:00 BP 128/67 05/27/18 12:00 Pulse Ox 97 05/27/18 12:00 Intake & Output 05/26/18 05/27/18 05/27/18 18:59 06:59 18:59 Intake Total 80 Balance 80 Weight (lbs) 51.71 kg Intake: Oral 80 Other: # Voids 2 Weight Source Bedscale Active Medications: Current Medications Acetaminophen (Tylenol) 650 mg PO Q6HR PRN PRN Reason: Pain or Fever >101 Stop: 07/22/18 22:17 Amlodipine Besylate (Norvasc) 10 mg PO DAILY [facility] Stop: 07/23/18 08:59 Last Admin: 05/27/18 09:06 Dose: 10 mg Aspirin (Ecotrin) 81 mg PO DAILY [facility] Stop: 07/23/18 08:59 Last Admin: 05/27/18 09:06 Dose: 81 mg Carvedilol (Coreg) 25 mg PO BID [facility] Stop: 07/23/18 08:59 Last Admin: 05/27/18 09:05 Dose: 25 mg Cinacalcet (Sensipar) 30 mg PO DAILY [facility] Stop: 07/23/18 08:59 Last Admin: 05/27/18 09:04 Dose: 30 mg Cyanocobalamin (Vitamin B12) 1,000 mcg PO DAILY [facility] Stop: 07/23/18 08:59 Last Admin: 05/27/18 09:05 Dose: 1,000 mcg Docusate Sodium (Colace) 100 mg PO BID [facility] Stop: 07/23/18 08:59 Last Admin: 05/27/18 09:05 Dose: 100 mg Folic Acid (Folate) 1 mg PO DAILY [facility] Stop: 07/23/18 08:59 Last Admin: 05/27/18 09:05 Dose: 1 mg Lactulose (Cephulac) 20 gm PO BID [facility] Stop: 07/23/18 08:59 Last Admin: 05/27/18 09:03 Dose: 20 gm Lisinopril (Zestril) 5 mg PO HS [facility] Stop: 07/23/18 20:59 Last Admin: 05/26/18 20:55 Dose: 5 mg Miscellaneous (Abacavir Sulfate [Ziagen]) 300 mg PO BID [facility] Stop: 07/23/18 08:59 Miscellaneous (Dolutegravir Sodium [Tivicay]) 50 mg PO DAILY [facility] Stop: 07/23/18 08:59 Miscellaneous (Lamivudine [Epivir]) 300 mg PO DAILY [facility] Stop: 07/23/18 08:59 Miscellaneous (Clinical Monitoring) 1 ea MC DAILY PRN PRN Reason: RENAL Stop: 07/25/18 08:28 Ondansetron HCl (Zofran Odt) 4 mg PO Q4HR PRN PRN Reason: NAUSEA/VOMITING Stop: 07/22/18 22:59 Sevelamer Carbonate (Renvela) 2,400 mg PO TIDWM [facility] Stop: 07/23/18 07:59 Last Admin: 05/27/18 09:03 Dose: 2,400 mg Thiamine HCl (Vitamin B1) 100 mg PO DAILY [facility] Stop: 07/23/18 08:59 Last Admin: 05/27/18 09:05 Dose: 100 mg Vitamin B Complex/Vit C/Folic Acid (Vitamin B Complex W/Vitamin C) 1 tab PO DAILY [facility] Stop: 07/23/18 08:59 Last Admin: 05/27/18 09:04 Dose: 1 tab General: No acute distress HEENT: Atraumatic, PERRLA, Mucous membr. moist/pink Neck: Supple, +2 carotid pulse wo bruit Cardiovascular: Regular rate, Normal S1, Normal S2 Lungs: Clear to auscultation Abdomen: Bowel sounds, Soft Extremities: no Edema Neurological: Sensation intact Skin: no Rash Psych/Mental Status: Mood NL - Procedures Procedures: Procedures Procedure Code Date PERFORMANCE OF URINARY FILTRATION, <6 HRS/DAY [id number] 02/20/18 Assessment/Plan - Assessment Assessment: ESRD on HD Gen weakness HIV Ess Htn w/ CKD Met Enceph CAD Anemia of CD Fnc Quadriplegia - Plan Plan: Current Medications Heparin Sodium (Porcine) (Heparin) 2,000 units HD UD [facility] Stop: 05/24/18 00: Lab - Result Diagrams 05/26/18 04:35 05/26/18 04:35 schedule for HD in am encourage po intake Nutritional Asmnt/Malnutr-PDOC - Dietary Evaluation Malnutrition Findings (Please click <Entered> for more info): Nutritional Asmnt/Malnutrition Start: 05/23/18 17: 03 Text: Status: Complete Freq: Protocol: Document 05/23/18 17:03 LCOMARG (Rec: 05/23/18 17:12 [id number]) Nutritional Asmnt/Malnutrition Patient General Information Nutritional Screening High Risk Consult Diagnosis generalized weakness, hyperkalemia ESRD Pertinent Medical Hx/Surgical Hx HTN, ESRD, HIV Subjective Information Pt seen eating lunch in bed at time of visit, not answering RD questions. Per EMR, PO intake 50-100%. Consult received for 50-100%. Pt is on dialysis. Per EMR. pt consumed 50% of breakfast today. Current Diet Order/ Nutrition Support pureed, nectar, low patassium, no dairy Pertinent Medications heparin Pertinent Labs 05/23 BUN 29, Cr 8.2, Alb 3.7 Nutritional Hx/Data Height 1.7 m Height (Calculated Centimeters) 170.2 Current Weight (lbs) 51.256 kg Weight (Calculated Kilograms) 51.3 Weight (Calculated Grams) 25544.9 [place] Body Weight 148 Body Mass Index (BMI) 17.6 Weight Status Underweight GI Symptoms GI Symptoms None Last BM not indicated Difficult in: None Skin Integrity/Comment: intact Current %PO Fair (50-74%) Estimated Nutritional Goals BEE in Kcals: Using Current wt Calories/Kcals/Kg 30-35 Kcals Calculated 7092-5413 Protein: Using Current wt Protein g/k.2-1.4 Protein Calculated 61-71 Fluid: ml fluid restriction 1500ml per MD Nutritional Problem 2. Problem Problem increased nutrition needs ( calorie and protein) Etiology increased metabolic demand Signs/Symptoms: pt on dialysis, underweight and hx of HIV 1. Problem Problem altered nutrition related labs Etiology hx of ESRD Signs/Symptoms: BUN 29, Cr 8.2 Intervention/Recommendation Comments 1. Continue with current diet as ordered. Encourage oral intake. Nurse to assist pt with meals as needed. 2. Monitor PO intake, wt, labs and skin integrity 3. F/U as high risk in 2-3 day ,s 05/25-05/26 Expected Outcomes/Goals Expected Outcomes/Goals 1. PO intake to meet at least 75% of nutritional needs. 2. Wt stability, skin to remain intact, labs to approach WNL.
--- NOTE | 2018-05-28 18:16 | Discharge Summary ---
DATE OF DISCHARGE: 05/28/2018 FINAL DIAGNOSES: 1. Hyperkalemia, corrected. 2. End-stage renal disease on hemodialysis. 3. Short of breath, resolved. 4. Weakness, stabilized. 5. Human immunodeficiency virus. 6. Altered level of consciousness, improved. 7. Hypertension, improved. 8. Hyponatremia, resolved. HOSPITAL COURSE: The patient is a 57-year-old male admitted due to severe weakness with hyperkalemia and end-stage renal disease due for hemodialysis. The patient also had hyponatremia. The patient received hemodialysis and Kayexalate to bring down his potassium, which stabilized. The patient was accepted back to longterm. DISCHARGE CONDITION: Stable. DISPOSITION: [facility]. DISCHARGE MEDICATIONS: Continue longterm medication. DIET: Cardiac, renal soft diet. ACTIVITY: Bed rest with physical therapy. FOLLOWUP: One week. JOB# [id number]
== END 2018-05-27 21:40 | DRG 640 ==
LOC: ER 23:43 → TELE 05-22 02:10
PROVIDERS: ADMIT Internal Medicine; ATTEND Internal Medicine
PROC: 5A1D70Z Performance of Urinary Filtration, Intermittent, Less than 6 Hours Per Day (ICD-10-PCS; principal; 2018-05-22)
PROC: 5A1D70Z Performance of Urinary Filtration, Intermittent, Less than 6 Hours Per Day (ICD-10-PCS; 2018-05-24)
DX: E87.5 Hyperkalemia (principal); G93.41 Metabolic encephalopathy; N18.6 End stage renal disease; R53.2 Functional quadriplegia; I13.2 Hypertensive heart and chronic kidney disease with heart failure and with stage 5 chronic kidney disease, or end stage renal disease; I42.9 Cardiomyopathy, unspecified; E87.1 Hypo-osmolality and hyponatremia; Z99.2 Dependence on renal dialysis; D63.1 Anemia in chronic kidney disease; I25.10 Atherosclerotic heart disease of native coronary artery without angina pectoris; I25.2 Old myocardial infarction; E88.9 Metabolic disorder, unspecified; G73.7 Myopathy in diseases classified elsewhere; F03.90 Unspecified dementia, unspecified severity, without behavioral disturbance, psychotic disturbance, mood disturbance, and anxiety; Z88.8 Allergy status to other drugs, medicaments and biological substances
CPT/HCPCS: 36415-UA; 70450-TC; 71045-TC; 80048-TC; 80053-TC; 84484-TC; 85025-TC; 90937; 93005; 96374; 96375; J1644; J1815; J7030; J7040; J7799; X3401; Z7610